=== PATIENT | male | born 1955 | race Caucasian/White ===

== ENCOUNTER 2018-07-15 07:28 | Outpatient (CLI) | payer OTHER, SELFPAY ==
[2018-07-15] VITALS (7 sets, daily range): BP systolic 111–128; BP diastolic 51–84; PULSE 76–83; RESP 16–18; O2SAT 94–98
--- NOTE | 2018-07-15 07:35 | DI.RAD.S_ITS ---
PROCEDURE: PAIN L/S TRANSFORAMINAL INJECT INDICATIONS: RADICULOPATHY FINDINGS: Fluoroscopic spot filming was performed to verify placement of spinal needles at the left side, L4-5 neural foramen area, son report sign report sign report as labeled on the films. Appropriate location(s) of the needle tip(s) was confirmed by injection of iodinated contrast. IMPRESSION: Needle tip localization on the left at the L4-5 neural foramen area for epidural steroid injection. Dictated by: Eron Shearer M.D. on 07/15/2018 at 10:03 Approved by: Eron Shearer M.D. on 07/15/2018 at 10:17
--- NOTE | 2018-07-15 07:35 | DI.RAD.S_ITS ---
PROCEDURE: XR LUMBAR SPINE MIN 4V INDICATIONS: RADICULOPATHY TECHNIQUE: 5 views of the lumbar spine were acquired. COMPARISON: [facility], , L-SPINE 2-3 VIEWS, 06/12/2007, 13:58. FINDINGS: Bones: 5 nonrib-bearing vertebrae are present. There is normal bony alignment. No vertebral body compression fractures. No suspicious bony lesions. Mild facet osteoarthritis is present at L34 and moderate facet osteoarthritis is present at L4-5 and slightly greater at L5-S1. This is present bilaterally. Mild foraminal stenosis appears present at L4-5 and L5-S1, symmetric. Soft tissues: Overlying bowel gas pattern is normal. No suspicious soft tissue calcifications. Oblique images: No pars defects. IMPRESSION: No trauma found, and no subluxation present. Degenerative disc disease is associated with only a slight degree of disc height reduction but facet osteoarthritis over the lower half of the LS-spine is associated with mild bilateral foraminal stenosis at L4-5 and L5-S1. Dictated by: Eron Shearer M.D. on 07/15/2018 at 9:44 Approved by: Eron Shearer M.D. on 07/15/2018 at 9:46
[2018-07-15] MEDS: MIDAZOLAM 5 MG/5 ML VIAL IV (08:23)
[2018-07-15] MEDS: BUPIVACAINE 0.25% (PF) VIAL 2 ML INJ (08:29)
[2018-07-15] MEDS: IOPAMIDOL 15 ML VIAL 3 ML INJ (08:30)
[2018-07-15] MEDS: DEXAMETHASONE 10 MG/ML VIAL 20 MG INJ (08:30)
--- NOTE | 2018-07-15 08:34 | PC.NURSE ---
Pt tolerated procedure, able to get off table with standby assist. Transferred pt to pre procedure room via wheelchair for continued monitoring with Lulu MARIE.
--- NOTE | 2018-07-15 08:38 | PM.PROC.1 ---
Procedures Date/Time Date of procedure: 07/15/18 Time of procedure: 08:39 General Procedure description: PREOP DIAGNOSIS 1. FORMAINAL STENOSIS WITH LE SYMPTOMS POST OP DIAGNOSIS 1. FORMAINAL STENOSIS WITH LE SYMPTOMS PROCEDURES 1. FLUOROSCOPICALLY GUIDED CONTRAST CONTROLLED TRANSFORAMINAL EPIDURAL STEROID INJECTION - LEFT L4/5 PHYSICIAN: Lexx Gould DO INDICATIONS: Amol is referred by DOROTHEA Wilson for treatment of Foraminal Stenosis with Left LE Symptoms FINDINGS Foraminal Nerve Root Compression secondary to disc disease and facet hypertrophy DESCRIPTION OF PROCEDURE: Following denial of allergy and review of potential side effects and complications, including, but not necessarily limited to, infection, allergic reaction, local tissue breakdown, stroke, temporary or permanent nerve injury, paralysis, and possible , the patient indicated that the patient understood and agreed to proceed. An informed consent document was signed by the patient, witnessed by a nurse, and placed in the patient's chart. Additionally, other treatment options including medications, modalities, and physical therapy were reviewed with the patient. After review of previous anaesthesic history and IV conscious sedation the patient was deemed safe to proceed with todays procedure with IV conscious sedation as ASA class II designation. Safety time-out was performed to confirm patient ID, procedure to be performed and site of procedure. IV sedation was accomplished with a combination of 3mg of Versed administered by the RN after DO order, titrated to patient comfort during the course of the procedure while the patient remained responsive to all verbal commands In the prone position following sterile prep and drape of the lumbar region, the left L4/5 posterior neuroforamen was identified fluoroscopically. The skin was anesthetized via a 25-gauge 1.5-inch needle with 1% lidocaine solution. At this point, a 25-gauge 3.5-inch spinal needle was atraumatically introduced and advanced under fluoroscopic guidance through the posterior left L4/5 neuroforamen to approximately the anterior aspect of the canal. Depth was confirmed on lateral view. Following negative aspiration, injection of approximately 1.5 cc of Isovue 200 under live fluoroscopy in the AP view confirmed excellent flow along the nerve root, into the epidural space without vascular or intrathecal uptake observed Radiological data, including multiple fluoroscopic views of the lumbosacral spine, reveal a spinal needle at the left L4/5 posterior neuroforamen. Subsequent views show flow of contrast material flowing superiorly and inferiorly along the nerve root confirming epidural flow. Subsequently, a test dose of 1.5 cc of 1% lidocaine solution was administered and patient was observed for two minutes for signs or symptoms of complications, including abdominal pain, shortness of breath, bilateral upper or lower extremity weakness, nausea and vomiting, prior to steroid injection. At this point, a total of 2cc or 20mg of dexamethasone was injected without incident. The procedure tolerated the procedure well without signs or symptoms of complications prior to transfer to the recovery area continued monitoring without incident. The patient was then transferred to the recovery area where they were observed for an appropriate time after the injection. The patient reported a VAS score of 7 prior to the procedure and a post-procedure VAS of 0. Total Fluoroscopy Time: 20.9 seconds Total Conscious Sedation Time: 24min POST OP INSTRUCTIONS The patient was provided a Pain Log to continue to record their response to the target-specific procedure prior to follow-up visit with their referring physician. Additionally, specific post-injection care instructions and a contact number to our office were provided if concerns arise regarding possible complications associated with the procedure are suspected. Lexx Gould DO Complications: none
--- NOTE | 2018-07-15 08:45 | PC.NURSE ---
ACCEPTED CARE OF PT IN POST PROC AREA. PT IN STABLE CONDITION
--- NOTE | 2018-07-16 12:26 | PC.NURSE ---
Follow up call made for post procedure Left L4/5 Transforaminal TALYA. Pt reports he's doing OK pain level went up to a 7/10. He has experienced the red flushing from the steroids, took valium last night and that helped. Also he said his leg stuff went away.
== END 2018-07-15 09:42 | disposition home or self-care (01) ==
LOC: RAD 07:31
PROVIDERS: Family Provider Physician Assistant Medical; PCP Physician Assistant Medical; Visit Provider Physical Medicine & Rehabilitation
DX: M47.27 Other spondylosis with radiculopathy, lumbosacral region (principal); M99.83 Other biomechanical lesions of lumbar region; M19.90 Unspecified osteoarthritis, unspecified site
CPT/HCPCS: 64483; 72110; 99152; J1100; J2250; J3010

== ENCOUNTER → 2018-08-07 20:02 | Outpatient (CLI) | payer OTHER, SELFPAY ==
--- NOTE | 2018-08-07 | DI.MRI.S_ITS ---
PROCEDURE: MR LUMBAR SPINE WO CON INDICATIONS: LEFT HIP PAIN TECHNIQUE: Noncontrast sagittal T1 spin echo and T2 fast echo, sagittal STIR, axial T1 and T2 fast spin echo through the lumbar spine. In cases with scoliosis, additional coronal T2 fast spin echo may be performed. COMPARISON: [facility], MR, L-SPINE WITHOUT CONTRAST, 05/08/2017, 15:02. [facility], MR, L-SPINE WITHOUT CONTRAST, 11/30/2010, 17:19. [facility], MR, L-SPINE WITHOUT CONTRAST, 08/01/2007, 11:53. [facility], CR, L-SPINE 2-3 VIEWS, 06/12/2007, 13:58. [facility], CR, XR LUMBAR SPINE MIN 4V, 07/15/2018, 7:58. FINDINGS: Image quality: Excellent. Alignment and Curvature: There is minimal retrolisthesis seen at the L2-L3 level. Minimal retrolisthesis is seen at L5-S1. Bone Marrow: Marrow is of normal overall signal. No acute vertebral body compression fractures. Spinal Cord: Conus medullaris terminates at the L1 level. Visualized cord demonstrates normal signal and size. Paraspinous Soft Tissues: No paravertebral masses. T12-L1: Normal appearance. L1-L2: No significant abnormality is seen. L2-L3: Mild loss of disc height is seen. Loss of disc signal is seen. Moderate generalized disc bulge is seen. Mild facet joint hypertrophy is seen. Moderate bilateral neural foraminal narrowing is seen. Moderate central canal narrowing is seen. These imaging findings have progressed compared to the prior study. L3-L4: Mild loss of disc height is seen. Loss of disc signal is seen. Moderate generalized disc bulge is seen. Ufnv-nr-jbmctoux facet hypertrophy is seen. Moderate bilateral neural foraminal narrowing is seen, right worse than left. Moderate central canal narrowing is seen. These imaging findings have progressed compared to the prior study. L4-L5: The disc height is well-preserved. Loss of disc signal is seen at this level. Moderate generalized disc bulge is seen. Moderate facet joint hypertrophy is seen. Moderate to severe bilateral neural foraminal narrowing is seen, left worse than right. There is a degree of compression seen upon the exiting nerve roots. There has been removal of portions of the posterior elements. The central canal is widely patent. These imaging findings have progressed compared to the prior study. L5-S1: The disc height is well-preserved. Loss of disc signal is seen at this level. Minimal to mild disc bulge is seen. Mild facet joint hypertrophy is seen. There is mild left-sided and no significant right-sided neural foraminal narrowing seen. The central canal is widely patent. When comparison is made with the prior examination, these findings are similar. IMPRESSION: Multiple levels of lumbar spine degenerative change are seen, which are overall most prominent at the L4-L5 level. Compared to the prior MRI, the degenerative changes have mildly progressed at L2-L3, L3-L4, and L4-L5. Dictated by: Julian Rockwell M.D. on 08/08/2018 at 9:02 Approved by: Julian Rockwell M.D. on 08/08/2018 at 9:08
--- NOTE | 2018-08-07 | DI.MRI.S_ITS ---
PROCEDURE: MR HIP LT WO CON INDICATIONS: LEFT HIP PAIN TECHNIQUE: Noncontrast coronal T1 spin echo and STIR through the bony pelvis. Coronal and axial T2 fast spin echo with fat saturation, sagittal T1 spin echo, and oblique axial T2 fast spin echo with fat saturation through the hip. COMPARISON: None. FINDINGS: Image quality: Excellent. Bones and joints: Mild degenerative subchondral cyst changes at the anterosuperior acetabulum. No intraosseous lesions or fractures. No avascular necrosis of the femoral heads. There is also mild periarticular marrow edema adjacent to the inferior aspect of the left sacroiliac joint. Lower lumbar spondylosis. Tendons and ligaments: The gluteus medius and minimus tendons appear mildly thickened with internal signal change and adjacent soft tissue edema in keeping with insertional tendinopathy. The nearby proximal iliotibial band also appears intact. The iliopsoas tendon appears intact, without adjacent bursal fluid collections or evidence for impingement syndrome. The origin of the hamstring tendon is intact at the ischial tuberosity, as well as the associated sacrotuberous ligament. The straight and reflected heads of the rectus femoris muscle origin appear intact, as well as the conjoint tendon. The ligamentum teres appears intact where visualized. Labrum and cartilage: The anterosuperior labrum is not well visualized raising possibility of degeneration versus ill-defined tear. This could be further assessed with dedicated MR arthrography if clinically necessary. Cartilage surface of the femoral head appears of normal thickness. The alpha angle of the femur is within normal limits at less than 55 degrees. Soft tissues: Visualized muscles demonstrate normal bulk and internal signal. Quadratus femoris muscle demonstrates no internal edema to suggest ischiofemoral impingement. The proximal sciatic neurovascular bundle appears normal adjacent to the hamstring tendons. No free pelvic fluid. Bladder wall thickness is normal. Genitourinary structures and bowel loops appear normal where visualized. IMPRESSION: Left hip abductor insertional tendinopathy (primarily affecting the gluteus minimus) with associated adjacent soft tissue edema. Poorly defined appearance of the anterosuperior labrum raising possibility of tear versus chronic degeneration. Adjacent subchondral marrow signal changes in the acetabulum suggests this is a chronic finding. Dictated by: Thierno Velarde M.D. on 08/08/2018 at 9:51 Approved by: Thierno Velarde M.D. on 08/08/2018 at 9:59
== END ==
PROVIDERS: Family Provider Physician Assistant Medical; PCP Physician Assistant Medical; Visit Provider Family Medicine
DX: M25.552 Pain in left hip (principal); M67.854 Other specified disorders of tendon, left hip; M47.816 Spondylosis without myelopathy or radiculopathy, lumbar region
CPT/HCPCS: 72148; 73721

== ENCOUNTER 2019-02-12 08:50 | Outpatient (CLI) | payer OTHER, SELFPAY ==
[2019-02-12] VITALS (8 sets, daily range): BP systolic 123–140; BP diastolic 59–88; PULSE 71–80; RESP 16–18; TEMP 36.5; O2SAT 93–99
--- NOTE | 2019-02-12 08:52 | DI.RAD.S_ITS ---
PROCEDURE: PAIN L/S TRANSFORAMINAL INJECT INDICATIONS: RADICULOPATHY FINDINGS: Fluoroscopic spot filming was performed to verify placement of spinal needles at the L4-L5 level(s), as labeled on the films. Appropriate location(s) of the needle tip(s) was confirmed by injection of iodinated contrast. IMPRESSION: Fluoroscopy for pain management. Dictated by: Pebbles Arreola M.D. on 02/12/2019 at 10:46 Approved by: Pebbles Arreola M.D. on 02/12/2019 at 10:46
[2019-02-12] MEDS: MIDAZOLAM 5 MG/5 ML VIAL IV (09:58)
[2019-02-12] MEDS: fentaNYL 100 MCG/2 ML INJ 50 MCG IV (09:59)
[2019-02-12] MEDS: DEXAMETHASONE 10 MG/ML VIAL 20 MG INJ (10:04)
[2019-02-12] MEDS: IOPAMIDOL 15 ML VIAL 3 ML INJ (10:04)
[2019-02-12] MEDS: BETAMETHASONE 30 MG/5 ML MDV 6 MG INJ (10:04)
[2019-02-12] MEDS: BUPIVACAINE 0.25% (PF) VIAL 2 ML INJ (10:04)
--- NOTE | 2019-02-12 10:09 | PC.NURSE ---
ASSISTING PT OFF TABLE AND TRANSPORTING TO POST PROC AREA IN STABLE CONDITION.
--- NOTE | 2019-02-12 10:14 | P.PCN_ITS ---
Procedures Date/Time Date of procedure: 02/12/19 Time of procedure: 10:14 General Procedure description: PREOP DIAGNOSIS 1. FORMAINAL STENOSIS WITH LE SYMPTOMS POST OP DIAGNOSIS 1. FORMAINAL STENOSIS WITH LE SYMPTOMS PROCEDURES 1. FLUOROSCOPICALLY GUIDED CONTRAST CONTROLLED TRANSFORAMINAL EPIDURAL STEROID INJECTION - RIGHT L4/5 TFESI PHYSICIAN: Lexx Gould DO INDICATIONS: Amol is referred by DOROTHEA Wilson for treatment of Foraminal Stenosis with Right LE Symptoms FINDINGS Foraminal Nerve Root Compression secondary to disc disease and facet hypertrophy DESCRIPTION OF PROCEDURE: Following review of allergy and review of potential side effects and complications, including, but not necessarily limited to, infection, allergic reaction, local tissue breakdown, stroke, temporary or permanent nerve injury, paralysis, and possible , the patient indicated that the patient understood and agreed to proceed. An informed consent document was signed by the patient, witnessed by a nurse, and placed in the patient's chart. Additionally, other treatment options including medications, modalities, and physical therapy were reviewed with the patient. After review of previous anaesthesic history and IV conscious sedation the patient was deemed safe to proceed with todays procedure with IV conscious sedation as ASA class II designation. Safety time-out was performed to confirm patient ID, procedure to be performed and site of procedure. IV sedation was accomplished with a combination of 3mg of Versed and 50mcg of Fentanyl was administered by the RN after DO order, titrated to patient comfort during the course of the procedure while the patient remained responsive to all verbal commands In the prone position following sterile prep and drape of the lumbar region, the Right L4/5 posterior neuroforamen was identified fluoroscopically. The skin was anesthetized via a 25-gauge 1.5-inch needle with 1% lidocaine solution. At this point, a 25-gauge 3.5-inch spinal needle was atraumatically introduced and advan regulo under fluoroscopic guidance through the posterior right L4/5 neuroforamen to approximately the anterior aspect of the canal. Depth was confirmed on lateral view. Following negative aspiration, injection of approximately 1.5 cc of Isovue 200 under live fluoroscopy in the AP view confirmed excellent flow along the nerve root, into the epidural space without vascular or intrathecal uptake observed Radiological data, including multiple fluoroscopic views of the lumbosacral spine, reveal a spinal needle at the right L4/5 posterior neuroforamen. Subsequent views show flow of contrast material flowing superiorly and inferiorly along the nerve root confirming epidural flow. Subsequently, a test dose of 1.5cc of 1% lidocaine solution was administered and patient was observed for two minutes for signs or symptoms of complications, including abdominal pain, shortness of breath, bilateral upper or lower extremity weakness, nausea and vomiting, prior to steroid injection. At this point, a total of 3cc or 20mg of dexamethasone and 6mg of betamethasone was injected without incident. The procedure tolerated the procedure well without signs or symptoms of complications prior to transfer to the recovery area continued monitoring without incident.The patient was then transferred to the recovery area where they were observed for an appropriate time after the injection. The patient reported a VAS score of 7 prior to the procedure and a post- procedure VAS of 0. Total Fluoroscopy Time: 20.9 seconds Total Conscious Sedation Time: 24min POST OP INSTRUCTIONS The patient was provided a Pain Log to continue to record their response to the target-specific procedure prior to follow-up visit with their referring physician. Additionally, specific post-injection care instructions and a contact number to our office were provided if concerns arise regarding possible complications associated with the procedure are suspected. Lexx Gould, Complications: none
== END 2019-02-12 10:40 | disposition home or self-care (01) ==
PROVIDERS: PCP Physician Assistant Medical; Visit Provider Physical Medicine & Rehabilitation
DX: M48.061 Spinal stenosis, lumbar region without neurogenic claudication (principal); M51.16 Intervertebral disc disorders with radiculopathy, lumbar region
CPT/HCPCS: 64483; 99152; J0702; J1100; J2250; J3010

== ENCOUNTER → 2019-05-19 09:03 | Outpatient (CLI) | payer OTHER, SELFPAY ==
--- NOTE | 2019-05-19 | DI.MRI.S_ITS ---
PROCEDURE: MR HIP RT W CON INDICATIONS: PAIN OF RIGHT HIP TECHNIQUE: After the administration of 10 mL of dilute intra-articular Gadolinium contrast, coronal STIR of the bony pelvis; coronal and oblique axial T1 spin echo with fat saturation, axial T2 fast spin echo with fat saturation, sagittal T1 spin echo with and without fat saturation of the involved hip. COMPARISON: [facility], [place], [place] HIP INJECTION MR/CT RT, 05/19/2019, 9:24. [facility], CR, XR PELVIS WITH LATERAL HIP LEFT, 09/08/2018, 9:13. FINDINGS: Image quality: Diagnostic. Bones and joints: There is no acute fracture, dislocation, suspicious osseous lesion, or evidence of avascular necrosis involving the right hip. Mild degenerative changes of the right hip are present with heterogeneity of the hyaline articular cartilage and probable small areas of cartilaginous fissuring. No large defects are evident. The alpha angle of the right femoral head measures approximately 57?. There is suboptimal distention of the right hip joint with the injected contrast. No loose intra-articular joint bodies are appreciated. The remainder of the imaged osseous structures of the pelvis demonstrate no fractures or suspicious osseous lesions. There mild degenerative changes of the other pelvic joints. Labrum: There is a moderate-sized superior labral tear with associated labral degeneration that extends along the entire superior labrum from the 10 o'clock position to at least the 2 o'clock position. No detached labral fragment or large para labral cysts are evident. Tendons and ligaments: The ligamentum teres is not well seen, but appears to be intact. There is mild increased signal identified involving the distal gluteus minimus tendon near its insertion. No significant tearing is present. The distal gluteus medius tendon is intact and otherwise unremarkable. The distal iliopsoas tendons are unremarkable. The proximal hamstrings tendons may demonstrate slight increased signal without significant tearing. Soft tissues: Visualized muscles demonstrate normal bulk and internal signal. Quadratus femoris muscle demonstrates no internal edema to suggest ischiofemoral impingement. The proximal sciatic neurovascular bundle appears normal adjacent to the hamstring tendons. No free pelvic fluid. Bladder wall demonstrates mild prominence. Genitourinary structures and bowel loops appear normal where visualized. IMPRESSION: 1. Mild degenerative changes of the right hip. 2. Moderate-sized superior labral tear. 3. Minimal distal right gluteus minimus tendinopathy without significant tearing. 4. Possible mild proximal right hamstrings tendinopathy. 5. Nonspecific prominence of the wall of the urinary bladder. This may be exaggerated by incomplete distention. However, cystitis or chronic bladder outlet obstruction may also result in this appearance. Dictated by: Wolf Talbert M.D. on 05/19/2019 at 10:30 Approved by: Wolf Talbert M.D. on 05/19/2019 at 10:51
--- NOTE | 2019-05-19 | DI.RAD.S_ITS ---
PROCEDURE: [place] HIP INJECTION MR/CT RT INDICATIONS: PAIN OF RIGHT HIP TECHNIQUE: The indications, alternatives, benefits, risks, and complications of the procedure were explained to the patient. Written informed consent was obtained and placed in the chart. The hip was examined fluoroscopically with the legs fixed in slight internal rotation, and a site for needle placement chosen for entry into the hip joint from an anterior approach. Care was taken to locate the common femoral artery and vein beforehand. The skin was prepped and draped in a sterile fashion, and 1% Lidocaine infiltrated from skin down to joint capsule. A spinal needle was inserted into the joint, and a small amount of iodinated contrast media injected to confirm intra-articular placement of the needle tip. This was followed by approximately 10 mL dilute solution of a gadolinium containing MR contrast agent. The needle was removed and a dressing was applied. The patient was given postprocedural instructions and sent to the MR suite for imaging. FINDINGS: A single fluoroscopic spot image demonstrates intra-articular location of injected iodinated contrast. IMPRESSION: Successful fluoroscopically guided administration of dilute Gadolinium solution into the hip joint for MR arthrogram. Dictated by: Eron Shearer M.D. on 05/19/2019 at 10:51 Approved by: Eron Shearer M.D. on 05/19/2019 at 10:51
== END ==
PROVIDERS: PCP Physician Assistant Medical; Visit Provider Physician Assistant Surgical
DX: M25.551 Pain in right hip (principal); S73.191A Other sprain of right hip, initial encounter
CPT/HCPCS: 27093; 73722; 77002

== ENCOUNTER → 2019-09-26 08:25 | Outpatient (CLI) | payer OTHER, SELFPAY ==
[2019-09-27 10:33] LABS: COVID19 Sendout Not Detected (Not Detect)
== END ==
PROVIDERS: PCP Physician Assistant Medical; Visit Provider Physician Assistant
DX: Z11.59 Encounter for screening for other viral diseases (principal)
CPT/HCPCS: 87635

== ENCOUNTER 2019-09-29 10:37 | Outpatient (CLI) | payer OTHER, SELFPAY ==
[2019-09-29] VITALS (10 sets, daily range): BP systolic 106–121; BP diastolic 46–79; PULSE 66–72; RESP 15–18; TEMP 36.6; O2SAT 86–98
--- NOTE | 2019-09-29 10:39 | DI.RAD.S_ITS ---
PROCEDURE: PAIN L/S TRANSFORAMINAL INJECT INDICATIONS: SPONDYLOSIS FINDINGS: Fluoroscopic spot filming was performed to verify placement of spinal needles at the L4-L5 level(s), as labeled on the films. Appropriate location(s) of the needle tip(s) was confirmed by injection of iodinated contrast. Dictated by: Thierno Velarde M.D. on 09/30/2019 at 8:48 Approved by: Thierno Velarde M.D. on 09/30/2019 at 8:48
[2019-09-29] MEDS: fentaNYL 100 MCG/2 ML INJ 50 MCG IV (11:30)
[2019-09-29] MEDS: MIDAZOLAM 5 MG/5 ML VIAL IV (11:31)
[2019-09-29] MEDS: BETAMETHASONE 30 MG/5 ML MDV 6 MG INJ (11:38)
[2019-09-29] MEDS: BUPIVACAINE 0.25% (PF) VIAL 2 ML INJ (11:38)
[2019-09-29] MEDS: IOPAMIDOL 15 ML VIAL 3 ML INJ (11:38)
[2019-09-29] MEDS: DEXAMETHASONE 10 MG/ML VIAL 20 MG INJ (11:38)
--- NOTE | 2019-09-29 11:48 | P.PCN_ITS ---
Procedures Date/Time Date of procedure: 09/29/19 Time of procedure: 11:48 General Procedure description: PREOP DIAGNOSIS 1. FORMAINAL STENOSIS WITH LE SYMPTOMS POST OP DIAGNOSIS 1. FORMAINAL STENOSIS WITH LE SYMPTOMS PROCEDURES 1. FLUOROSCOPICALLY GUIDED CONTRAST CONTROLLED TRANSFORAMINAL EPIDURAL STEROID INJECTION - LEFT L4/5 PHYSICIAN: Lexx Gould DO INDICATIONS: Amol is referred by DOROTHEA Wilson for treatment of Foraminal Stenosis with Left LE Symptoms FINDINGS Foraminal Nerve Root Compression secondary to disc disease and facet hypertrophy DESCRIPTION OF PROCEDURE: Following review of allergy and review of potential side effects and complications, including, but not necessarily limited to, infection, allergic reaction, local tissue breakdown, stroke, temporary or permanent nerve injury, paralysis, and possible , the patient indicated that the patient understood and agreed to proceed. An informed consent document was signed by the patient, witnessed by a nurse, and placed in the patient's chart. Additionally, other treatment options including medications, modalities, and physical therapy were reviewed with the patient. After review of previous anaesthesic history and IV conscious sedation the toney ent was deemed safe to proceed with todays procedure with IV conscious sedation as ASA class II designation. Safety time-out was performed to confirm patient ID, procedure to be performed and site of procedure. IV sedation was accomplished with a combination of 3mg of Versed and 50mcg of Fentanyl administered by the RN after DO order, titrated to patient comfort during the course of the procedure while the patient remained responsive to all verbal commands In the prone position following sterile prep and drape of the lumbar region, the left L4/5 posterior neuroforamen was identified fluoroscopically. The skin was anesthetized via a 25-gauge 1.5-inch needle with 1% lidocaine solution. At this point, a 22-gauge 5-inch spinal needle was atraumatically introduced and advanced under fluoroscopic guidance through the posterior left L4/5 neuroforamen to approximately the anterior aspect of the canal. Depth was confirmed on lateral view. Following negative aspiration, injection of appro ximately 1.5 cc of Isovue 200 under live fluoroscopy in the AP view confirmed excellent flow along the nerve root, into the epidural space without vascular or intrathecal uptake observed Radiological data, including multiple fluoroscopic views of the lumbosacral spine, reveal a spinal needle at the left L4/5 posterior neuroforamen. Subsequent views show flow of contrast material flowing superiorly and inferiorly along the nerve root confirming epidural flow. Subsequently, a test dose of 1.5 cc of 1% lidocaine solution was administered and patient was observed for two minutes for signs or symptoms of complications, including abdominal pain, shortness of breath, bilateral upper or lower extremity weakness, nausea and vomiting, prior to steroid injection. At this point, a total of 3cc or 20mg of dexamethasone and 6mg of betamethasone was injected without incident. The procedure tolerated the procedure well without signs or symptoms of complications prior to transfer to the recovery area continued monitoring without incident. The patient was then transferred to the recovery area where they were observed for an appropriate time after the injection. The patient reported a VAS score of 7 prior to the procedure and a post- procedure VAS of 0. Total Fluoroscopy Time: 12 seconds Total Conscious Sedation Time: 24min POST OP INSTRUCTIONS The patient was provided a Pain Log to continue to record their response to the target-specific procedure prior to follow-up visit with their referring physician. Additionally, specific post-injection care instructions and a contact number to our office were provided if concerns arise regarding possible complications associated with the procedure are suspected. Lexx Gould DO Complications: none
== END 2019-09-29 12:14 | disposition home or self-care (01) ==
LOC: RAD 10:38
PROVIDERS: PCP Physician Assistant Medical; Referring Provider Physical Medicine & Rehabilitation; Visit Provider Physical Medicine & Rehabilitation
DX: M48.061 Spinal stenosis, lumbar region without neurogenic claudication (principal); M51.16 Intervertebral disc disorders with radiculopathy, lumbar region
CPT/HCPCS: 64483; 99152; J0702; J1100; J2250; J3010

== ENCOUNTER → 2019-12-12 08:13 | Outpatient (CLI) | payer OTHER, SELFPAY ==
[2019-12-14 13:08] LABS: COVID19 Sendout Not Detected (Not Detect)
== END ==
PROVIDERS: PCP Physician Assistant Medical; Visit Provider Nurse Practitioner
DX: Z11.59 Encounter for screening for other viral diseases (principal)
CPT/HCPCS: 87635

== ENCOUNTER 2019-12-15 08:00 | Outpatient (CLI) | payer OTHER, SELFPAY ==
[2019-12-15] VITALS (8 sets, daily range): BP systolic 120–143; BP diastolic 56–74; PULSE 69–80; RESP 8–18; TEMP 36.3; O2SAT 93–98
--- NOTE | 2019-12-15 08:00 | DI.RAD.S_ITS ---
PROCEDURE: PAIN L/S TRANSFORAMINAL INJECT INDICATIONS: SPONDYLOSIS COMPARISON: [facility], , PAIN L/S TRANSFORAMINAL INJECT, 09/29/2019, 10:33. Fluoroscopic spot filming was performed to verify placement of a spinal needle at the L4-L5 level on the right, as labeled on the films. Appropriate location of the needle tip was confirmed by injection of iodinated contrast. IMPRESSION: Intraprocedural examination within normal limits. Dictated by: Julian Rockwell M.D. on 12/15/2019 at 9:06 Approved by: Julian Rockwell M.D. on 12/15/2019 at 9:07
[2019-12-15] MEDS: MIDAZOLAM 5 MG/5 ML VIAL IV (09:09)
[2019-12-15] MEDS: fentaNYL 100 MCG/2 ML INJ 50 MCG IV (09:09)
[2019-12-15] MEDS: BETAMETHASONE 30 MG/5 ML MDV 6 MG INJ (09:14)
[2019-12-15] MEDS: DEXAMETHASONE 10 MG/ML VIAL 20 MG INJ (09:14)
[2019-12-15] MEDS: BUPIVACAINE 0.25% (PF) VIAL 2 ML INJ (09:14)
[2019-12-15] MEDS: IOPAMIDOL 15 ML VIAL 3 ML INJ (09:14)
--- NOTE | 2019-12-15 09:28 | P.PCN_ITS ---
Date/Time/Diagnoses Date of procedure: 12/15/19 Time of procedure: 09:28 Pre-procedure diagnosis: 1. FORAMINAL STENOSIS WITH LE SYMPTOMS Post-procedure diagnosis: same Procedure Notes Procedure: 1. FLUOROSCOPICALLY GUIDED CONTRAST CONTROLLED TRANSFORAMINAL EPIDURAL STEROID INJECTION - RIGHT L4/5 TFESI Indications: Amol is referred by DOROTHEA Wilson for treatment of Foraminal Stenosis with Right LE Symptoms Physician: Lexx Gould Total Fluoroscopy time (seconds): 13 Total sedation minutes: 13 Complications: none Procedure in detail & Post-procedure care: FINDINGS Foraminal Nerve Root Compression secondary to disc disease and facet hypertrophy DESCRIPTION OF PROCEDURE Following review of allergy and review of potential side effects and complications, including, but not necessarily limited to, infection, allergic reaction, local tissue breakdown, stroke, temporary or permanent nerve injury, paralysis, and possible , the patient indicated that the patient understood and agreed to proceed. An informed consent document was signed by the patient, witnessed by a nurse, and placed in the patient's chart. Additionally, other treatment options including medications, modalities, and physical therapy were reviewed with the patient. After review of previous anaesthesic history and IV conscious sedation the patient was deemed safe to proceed with today?s procedure with IV conscious sedation as ASA class II designation. Safety time-out was performed to confirm patient ID, procedure to be performed and site of procedure. IV sedation was accomplished with a combination of 2mg of Versed and 50mcg of Fentanyl was administered by the RN after DO order, titrated to patient comfort during the course of the procedure while the patient remained responsive to all verbal commands In the prone position following sterile prep and drape of the lumbar region, the Right L4/5 posterior neuroforamen was identified fluoroscopically. The skin was anesthetized via a 25-gauge 1.5-inch needle with 1% lidocaine solution. At this point, a 22-gauge 5-inch spinal needle was atraumatically introduced and advanced under fluoroscopic guidance through the posterior Right L4/5 neuroforamen to approximately the anterior aspect of the canal. Depth was confirmed on lateral view. Following negative aspiration, injection of approximately 1.5cc of Isovue 200 under live fluoroscopy in the AP view confirmed excellent flow along the nerve root, into the epidural space without vascular or intrathecal uptake observed Radiological data, including multiple fluoroscopic views of the lumbosacral spine, reveal a spinal needle at the right L4/5 posterior neuroforamen. Subsequent views show flow of contrast material flowing superiorly and inferiorly along the nerve root confirming epidural flow. Subsequently, a test dose of 1.5 cc of 1% lidocaine solution was administered and patient was observed for two minutes for signs or symptoms of complications, including abdominal pain, shortness of breath, bilateral upper or lower extremity weakness, nausea and vomiting, prior to steroid injection. At this point, a total of 3cc or 20mg of dexamethasone and 6mg of betamethasone was injected without incident. The procedure tolerated the procedure well without signs or symptoms of complications prior to transfer to the recovery area continued monitoring without incident. The patient was then transferred to the recovery area where they were observed for an appropriate time after the injection. The patient reported a VAS score of 7 prior to the procedure and a post- procedure VAS of 0. POST OP INSTRUCTIONS The patient was provided a Pain Log to continue to record their response to the target-specific procedure prior to follow-up visit with their referring physician. Additionally, specific post-injection care instructions and a contact number to our office were provided if concerns arise regarding possible complications associated with the procedure are suspected.
== END 2019-12-15 09:51 | disposition home or self-care (01) ==
LOC: RAD 08:00
PROVIDERS: PCP Physician Assistant Medical; Referring Provider Physician Assistant Medical; Visit Provider Physical Medicine & Rehabilitation
DX: M48.061 Spinal stenosis, lumbar region without neurogenic claudication (principal); M51.16 Intervertebral disc disorders with radiculopathy, lumbar region
CPT/HCPCS: 64483; 99152; J0702; J1100; J2250; J3010

== ENCOUNTER → 2020-06-22 08:18 | Outpatient (CLI) | payer OTHER, SELFPAY ==
--- NOTE | 2020-06-22 08:20 | DI.RAD.S_ITS ---
PROCEDURE: XR LUMBAR SPINE MIN 4V INDICATIONS: BACK PAIN TECHNIQUE: 5 views of the lumbar spine were acquired, including bilateral oblique views. COMPARISON: [facility], CR, XR LUMBAR SPINE MIN 4V, 07/15/2018, 7:58. FINDINGS: Bones: 5 nonrib-bearing vertebrae are present. There is mild L4-L5 anterolisthesis which is not significantly changed compared to the prior exam. No vertebral body compression fractures. No suspicious bony lesions. Mild multilevel degenerative disc disease. Moderate L4-L5 and L5-S1 facet arthropathy. Soft tissues: Overlying bowel gas pattern is normal. No suspicious soft tissue calcifications. Oblique images: No pars defects. IMPRESSION: 1. Multilevel degenerative disc disease. 2. Multilevel facet arthropathy. 3. No fracture. No acute osseous lesion. If symptoms and/or clinical suspicion for pathology persists, evaluation with MRI should be considered for further assessment. Dictated by: Analy Lu MD, PhD on 06/22/2020 at 17:21 Approved by: Analy Lu MD, PhD on 06/22/2020 at 17:22
== END ==
PROVIDERS: PCP Physician Assistant Medical; Referring Provider Physical Medicine & Rehabilitation; Visit Provider Physical Medicine & Rehabilitation
DX: M51.36 Other intervertebral disc degeneration, lumbar region (principal); M48.061 Spinal stenosis, lumbar region without neurogenic claudication; M51.26 Other intervertebral disc displacement, lumbar region; M54.17 Radiculopathy, lumbosacral region; M96.1 Postlaminectomy syndrome, not elsewhere classified; M25.851 Other specified joint disorders, right hip; M47.27 Other spondylosis with radiculopathy, lumbosacral region; M67.952 Unspecified disorder of synovium and tendon, left thigh
CPT/HCPCS: 72110; 99214

== ENCOUNTER → 2020-07-19 13:28 | Outpatient (CLI) | payer OTHER, SELFPAY ==
[2020-07-19 15:50] LABS: COVID19 -Nasal RAPID Negative (Negative)
== END ==
PROVIDERS: PCP Physician Assistant Medical; Visit Provider Physical Medicine & Rehabilitation
DX: Z20.822 Contact with and (suspected) exposure to COVID-19 (principal)
CPT/HCPCS: 87635; C9803

== ENCOUNTER 2020-07-21 12:31 | Outpatient (CLI) | payer OTHER, SELFPAY ==
[2020-07-21] VITALS (10 sets, daily range): BP systolic 113–142; BP diastolic 56–77; PULSE 58–67; RESP 10–25; TEMP 36.6; O2SAT 96–100
[2020-07-21] MEDS: fentaNYL 100 MCG/2 ML INJ 50 MCG IV (13:20)
[2020-07-21] MEDS: MIDAZOLAM 5 MG/5 ML VIAL IV (13:26)
[2020-07-21] MEDS: BUPIVACAINE 0.25% (PF) VIAL 2 ML INJ (13:28)
[2020-07-21] MEDS: IOPAMIDOL 15 ML VIAL 3 ML INJ (13:28)
[2020-07-21] MEDS: LIDOCAINE 1% 20 ML 10 ML INJ (13:28)
[2020-07-21] MEDS: BETAMETHASONE 30 MG/5 ML MDV 12 MG INJ (13:28)
[2020-07-21] MEDS: DEXAMETHASONE 10 MG/ML VIAL 20 MG INJ (13:28)
--- NOTE | 2020-07-21 13:45 | PM.PROC.IR.1 ---
Date/Time/Diagnoses Date of procedure: 07/21/20 Time of procedure: 13:45 Pre-procedure diagnosis: 1. FORAMINAL STENOSIS WITH LE SYMPTOMS Procedure Notes Procedure: 1. FLUOROSCOPICALLY GUIDED CONTRAST CONTROLLED TRANSFORAMINAL EPIDURAL STEROID INJECTION - BILATERAL L4/5 TFESI Indications: Amol is referred by DOROTHEA Wilson for treatment of Foraminal Stenosis with bilateral LE Symptoms Physician: Lexx Gould Total Fluoroscopy time (seconds): 13 Total sedation minutes: 19 Complications: none Procedure in detail & Post-procedure care: FINDINGS Foraminal Nerve Root Compression secondary to disc disease and facet hypertrophy DESCRIPTION OF PROCEDURE Following review of allergy and review of potential side effects and complications, including, but not necessarily limited to, infection, allergic reaction, local tissue breakdown, stroke, temporary or permanent nerve injury, paralysis, and possible , the patient indicated that the patient understood and agreed to proceed. An informed consent document was signed by the patient, witnessed by a nurse, and placed in the patient's chart. Additionally, other treatment options including medications, modalities, and physical therapy were reviewed with the patient. After review of previous anaesthesic history and IV conscious sedation the patient was deemed safe to proceed with today?s procedure with IV conscious sedation as ASA class II designation. Safety time-out was performed to confirm patient ID, procedure to be performed and site of procedure. IV sedation was accomplished with a combination of 3mg of Versed and 50mcg of Fentanyl was administered by the RN after DO order, titrated to patient comfort during the course of the procedure while the patient remained responsive to all verbal commands In the prone position following sterile prep and drape of the lumbar region, the right L4/5 posterior neuroforamen was identified fluoroscopically. The skin was anesthetized via a 25-gauge 1.5-inch needle with 1% lidocaine solution. At this point, a 25-gauge 3.5-inch spinal needle was atraumatically introduced and advanced under fluoroscopic guidance through the posterior right L4/5 neuroforamen to approximately the anterior aspect of the canal. Depth was confirmed on lateral view. Following negative aspiration, injection of approximately 1.5cc of Isovue 200 under live fluoroscopy in the AP view confirmed excellent flow along the nerve root, into the epidural space without vascular or intrathecal uptake observed Radiological data, including multiple fluoroscopic views of the lumbosacral spine, reveal a spinal needle at the right L4/5 posterior neuroforamen. Subsequent views show flow of contrast material flowing superiorly and inferiorly along the nerve root confirming epidural flow. Subsequently, a test dose of 1.5cc of 1% lidocaine solution was administered and patient was observed for two minutes for signs or symptoms of complications, including abdominal pain, shortness of breath, bilateral upper or lower extremity weakness, nausea and vomiting, prior to steroid injection. At this point, a total of 3cc or 20mg of dexamethasone and 6mg betamethasone was injected without incident. Attention was then refocused to the left L4/5 level where the identical procedure was replicated. The procedure tolerated the procedure well without signs or symptoms of complications prior to transfer to the recovery area continued monitoring without incident. The patient was then transferred to the recovery area where they were observed for an appropriate time after the injection. The patient reported a VAS score of 7 prior to the procedure and a post-procedure VAS of 0. POST OP INSTRUCTIONS The patient was provided a Pain Log to continue to record their response to the target-specific procedure prior to follow-up visit with their referring physician. Additionally, specific post-injection care instructions and a contact number to our office were provided if concerns arise regarding possible complications associated with the procedure are suspected.
--- NOTE | 2020-07-21 13:48 | DI.RAD.S_ITS ---
PROCEDURE: PAIN L/S TRANSFORAM INJECT ANTONIO COMPARISON: [facility], , PAIN L/S TRANSFORAMINAL INJECT, 12/15/2019, 9:13. INDICATIONS: SPONDYLOSIS FINDINGS: Fluoroscopic spot filming was performed to verify placement of spinal needles on both sides at the L4-L5 level, as labeled on the films. Appropriate location of the needle tips was confirmed by injection of iodinated contrast. IMPRESSION: Intraprocedural examination within normal limits. Dictated by: Julian Rockwell M.D. on 07/21/2020 at 14:39 Approved by: Julian Rockwell M.D. on 07/21/2020 at 14:39
== END 2020-07-21 13:56 | disposition home or self-care (01) ==
LOC: RAD 12:32
PROVIDERS: PCP Physician Assistant Medical; Referring Provider Physician Assistant Medical; Visit Provider Physical Medicine & Rehabilitation
DX: M48.061 Spinal stenosis, lumbar region without neurogenic claudication (principal); M51.16 Intervertebral disc disorders with radiculopathy, lumbar region
CPT/HCPCS: 64483; 99152; J0702; J1100; J2250; J3010

== ENCOUNTER → 2020-11-22 08:11 | Outpatient (CLI) | payer MEDICARE, OTHER, SELFPAY ==
[2020-11-22 11:58] LABS: COVID19 -Nasal RAPID Negative (Negative)
== END ==
PROVIDERS: PCP Physician Assistant Medical; Visit Provider Physical Medicine & Rehabilitation
DX: Z20.822 Contact with and (suspected) exposure to COVID-19 (principal)
CPT/HCPCS: 87635; C9803

== ENCOUNTER 2020-11-24 08:16 | Outpatient (CLI) | payer MEDICARE, OTHER, SELFPAY ==
[2020-11-24] VITALS (8 sets, daily range): BP systolic 101–143; BP diastolic 55–82; PULSE 12–74; RESP 13–20; TEMP 36.5; O2SAT 95–100
--- NOTE | 2020-11-24 08:22 | DI.RAD.S_ITS ---
PROCEDURE: PAIN L/S FACET INJ/BLK 1ST ANTONIO COMPARISON: None. INDICATIONS: SPONDYLOSIS FINDINGS: Fluoroscopic spot filming was performed to verify placement of spinal needles at the L1-L2, L2-L3, L3-L4 level(s), as labeled on the films. Appropriate location(s) of the needle tip(s) was confirmed by injection of iodinated contrast. Dictated by: Thierno Velarde M.D. on 11/24/2020 at 10:32 Approved by: Thierno Velarde M.D. on 11/24/2020 at 10:33
[2020-11-24] MEDS: MIDAZOLAM 5 MG/5 ML VIAL IV (09:10)
[2020-11-24] MEDS: fentaNYL 100 MCG/2 ML INJ 50 MCG IV (09:10)
[2020-11-24] MEDS: LIDOCAINE 1% 20 ML INJ (09:13)
[2020-11-24] MEDS: BUPIVACAINE 0.5% (PF) VIAL 5 ML INJ (09:13)
[2020-11-24] MEDS: IOPAMIDOL 15 ML VIAL 3 ML INJ (09:14)
--- NOTE | 2020-11-24 09:33 | P.PCN_ITS ---
Date/Time/Diagnoses Date of procedure: 11/24/20 Time of procedure: 09:33 Pre-procedure diagnosis: 1. FACET ARTHROPATHY 2. AXIAL LBP 3. MULTILEVEL DDD Post-procedure diagnosis: same Procedure Notes Procedure: 1. FLUOROSCOPICALLY GUIDED CONTRAST CONTROLLED FACET JOINT INJECTIONS BILATERAL L1/2, L2/3, L3/4 Indications: Amol is referred by DOROTHEA Wilson for treatment of Axial LBP Physician: Lexx Gould Total Fluoroscopy time (seconds): 14 Total sedation minutes: 17 Complications: none Procedure in detail & Post-procedure care: FINDINGS Multilevel Facet Arthropathy with Clinically significant axial LBP DESCRIPTION OF PROCEDURE Fluoroscopically guided, contrast-controlled bilateral L1/2, L2/3, L3/4 facet joint injections. Following review of allergy and review of potential side effects and complications, including, but not necessarily limited to, infection, allergic reaction, local tissue breakdown, stroke, temporary or permanent nerve injury, paralysis, and possible , the patient indicated that the patient understood and agreed to proceed. An informed consent document was signed by the patient, witnessed by a nurse, and placed in the patient's chart. Additionally, other treatment options including medications, modalities, and physical therapy were reviewed with the patient. After review of previous anaesthesic history and IV conscious sedation the p atient was deemed safe to proceed with today's procedure with IV conscious sedation as ASA class II designation. Safety time-out was performed to confirm patient ID, procedure to be performed and site of procedure. IV sedation was accomplished with a combination of 3mg of Versed and 50mcg of Fentanyl administered by the RN after DO order, titrated to patient comfort during the course of the procedure while the patient remained responsive to all verbal commands In the prone position, following sterile prep and drape of the lumbar region, the posterior aspect of the L1/2, L2/3, L3/4 facet joints were identified fluoroscopically. The skin was anesthetized via a 25-gauge 1.5-inch needle with 1% lidocaine solution into the corresponding facet joints. At this point, a 22- gauge 3.5-inch spinal needle was atraumatically introduced and advanced under fluoroscopic guidance into the corresponding facet joints. Following negative aspiration, injections of approximately 0.2cc of Isovue 200 confirmed interarticular placement without vascular uptake. The identical procedure was then performed at the L1/2, L2/3, L3/4 facet joints on the left. Radiological data, including multiple fluoroscopic views of the lumbosacral spine, reveal a spinal needle at the L1/2, L2/3, L3/4 facet joints bilaterally. Subsequent views show flow of contrast material both superiorly and inferiorly within the joint space without vascular or intrathecal uptake. At this point, a total of 0.5cc including a mixture of 0.25cc Marcaine and 0.25cc betamethasone was injected without complication into each of the corresponding facet joints. The patient tolerated the procedure well without signs or symptoms of complications prior to transfer to the recovery area continued monitoring without incident. The patient was then transferred to the recovery area where they were observed for an appropriate period of time after the injection. The patient reported a VAS score of 7 prior to the procedure and a post-procedure VAS of 0. POST OP INSTRUCTIONS The patient was provided a Pain Log to continue to record their response to the target-specific procedure prior to follow-up visit with their referring physician. Additionally, specific post-injection care instructions and a contact number to our office were provided if concerns arise regarding possible complications associated with the procedure are suspected.
== END 2020-11-24 09:45 | disposition home or self-care (01) ==
LOC: RAD 08:21
PROVIDERS: PCP Physician Assistant Medical; Referring Provider Physical Medicine & Rehabilitation; Visit Provider Physical Medicine & Rehabilitation
DX: M47.816 Spondylosis without myelopathy or radiculopathy, lumbar region (principal); M51.36 Other intervertebral disc degeneration, lumbar region; M54.5 Low back pain
CPT/HCPCS: 64493; 64494; 64495; 99152; J2250; J3010

== ENCOUNTER 2021-03-11 17:38 | Emergency (ER) | payer MEDICARE, OTHER, SELFPAY ==
[2021-03-11 17:40] VITALS: BP 131/65; PULSE 73; RESP 30; TEMP 36.8; O2SAT 100; BMI 34.7
--- NOTE | 2021-03-11 17:51 | DI.RAD.S_ITS ---
PROCEDURE: XR CHEST 1V INDICATIONS: chest pain TECHNIQUE: One view of the chest was acquired. COMPARISON: None. FINDINGS: Surgical changes and devices: None. Lungs and pleura: Lungs are clear. No pleural effusions or pneumothorax. Mediastinum: Mediastinal contours appear normal. Heart size is normal. Bones and chest wall: No suspicious bony lesions. Overlying soft tissues appear unremarkable. IMPRESSION: No acute cardiopulmonary abnormalities or focal airspace disease. Dictated by: Solomon Scanlon M.D. on 03/11/2021 at 18:12 Approved by: Solomon Scanlon M.D. on 03/11/2021 at 18:12
[2021-03-11 18:20] LABS: Add Manual Diff / Slide Review NO; Basophils Absolute Auto 0 /uL (0-100); Basophils Percent Auto 0.2 % (0-2); Eosinophils Absolute Auto 800 /uL (0-450); Eosinophils Percent Auto 9.7 % (2-4); Hematocrit 45.3 % (41-53); Hemoglobin 15.7 g/dL (13.5-17.5); Lymphocytes Absolute Auto 2900 /uL (1100-4500); Lymphocytes Percent Auto 36.6 % (25-40); Mean Corpuscular HGB Conc 34.6 % (30-36); Mean Corpuscular Hemoglobin 30.4 PG (26-34); Mean Corpuscular Volume 87.9 fL (80-100); Monocytes Absolute Auto 600 /uL (0-900); Monocytes Percent Auto 7.1 % (3-14); Neutrophils Absolute Auto 3700 /uL (1500-7000); Neutrophils Percent Auto 46.4 % (50-75); Platelet Count 219 X10^3/uL (150-400); Red Blood Cell Count 5.16 X10^6/uL (4.5-5.9); Red Cell Distribution Width 12.6 % (11.6-14.8)
--- NOTE | 2021-03-11 18:25 | ED_ITS ---
HPI - General Adult General Chief complaint: Shortness of Breath/Dyspnea Stated complaint: faint,legs,arm,neck hurt, shooting pain/chest Time Seen by Provider: 03/11/21 18:23 Source: patient and family Mode of arrival: Wheelchair History of Present Illness HPI narrative: 65-year-old gentleman with a history of V-tach in number of years ago with full cardiac workup that was reassuring, he continues with metoprolol. He has chronic low back pain that is doing better after recent epidural steroid injection. He does take oxycodone 5 mg twice a day to help with this pain. Additionally has depression and noticed his over the last 6 weeks he has had worsening insomnia that has not been well treated with either Ambien or trazodone. He reports to the emergency room today complaining of abruptly feeling short of breath with central chest pain radiating up both sides of his neck both arms bilateral leg pain below his knees, a sense of chest tightness mild wheeze and notes that does feel worse with deep breathing but not particularly worse with exertion. He also notes ear pain throat pain and pain along the base of his skull along entire occiput. States that he has chronic exertional dyspnea that has had a negative workup to date. He describes no palpitations no nausea vomiting or diarrhea. He notes that he has not been COV ID vaccinated, but did have active infection in October of 2019 and continues to have loss of taste and smell with fullness and tinnitus in his ears. Related Data Home Medications Medication Instructions Recorded Confirmed cyclobenzaprine 10 mg tablet 10 mg PO PRN #0 05/27/12 02/06/21 desvenlafaxine succinate 100 mg 100 mg PO QDAY #0 06/26/12 02/06/21 tablet,extended release 24 hr (Pristiq) diclofenac sodium 75 mg 75 mg PO BID 06/23/18 02/06/21 tablet,delayed release omeprazole 20 mg capsule,delayed 20 mg PO BID cap 06/23/18 02/06/21 release metoprolol succinate 25 mg 25 mg PO DAILY 08/17/19 02/06/21 tablet,extended release 24 hr ergocalciferol (vitamin D2) 1,250 50,000 unit PO 2XW cap 06/22/20 02/06/21 mcg (50,000 unit) capsule fluticasone propionate 110 INHALATION 06/22/20 02/06/21 mcg/actuation HFA aerosol inhaler oxycodone 5 mg tablet 5 mg PO DAILY PRN tab 02/06/21 02/06/21 Allergies Allergy/AdvReac Type Severity Reaction Status Date / Time hydroxyzine Allergy Mild Verified 03/11/21 18:04 piroxicam Allergy Mild Blister Verified 03/11/21 18:04 topiramate Allergy Mild Blurry Verified 03/11/21 18:04 Vision Review of Systems Review of Systems Narrative: Remainder of complete review of systems is otherwise unremarkable except for that included in the HPI. 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 Well-nourished well-developed HEENT: Moist mucous membranes, normal sclera with reactive pupils, Neck: No JVD, supple Respiratory: Lungs are clear to auscultation, no wheezing no rales no rhonchi. Full and symmetrical air movement Cardiac: Regular rate and rhythm no murmurs no bruits Abdomen: Soft, nontender, good bowel tones, no flank pain Skin: Warm and dry, no rashes Neurologic: Grossly neurologically intact with no obvious asymmetries or abnormalities Extremities: No trauma, well perfused, no lower extremity edema Psych: Cooperative, appropriate insight and affect Initial Vital Signs Initial Vital Signs: Vital Signs Temperature 98.2 F 03/11/21 17:40 Pulse Rate 73 03/11/21 17:40 Respiratory Rate 30 H 03/11/21 17:40 Blood Pressure 131/65 03/11/21 17:40 Pulse Oximetry 100 03/11/21 17:40 Course Orders Ordered: ED Orders 03/11/21 17:51 XR chest 1V Stat EKG-12 Lead Stat 03/11/21 18:05 Complete Blood Count AUTO DIFF Stat Comprehensive Metabolic Panel Stat Lipase Stat Magnesium Stat Troponin & CK Cardiac Panel Stat 03/11/21 18:22 COVID19 -Nasal swab/Pre-Proc Stat Vital Signs Vital signs: Vital Signs - 8 hr 03/11/21 17:40 Temperature 98.2 F Pulse Rate 73 Respiratory Rate 30 H Blood Pressure 131/65 Pulse Oximetry 100 Medical Decision Making Lab Data Result diagrams: 03/11/21 18:05 03/11/21 18:05 Labs: Lab Results 03/11/21 03/11/21 03/11/21 Range/Units 17:48 18:05 18:05 WBC 8.0 (4.5-11.0) X10^3/uL RBC 5.16 (4.5-5.9) X10^6/uL Hgb 15.7 (13.5-17.5) g/dL Hct 45.3 (41-53) % MCV 87.9 (80-100) fL MCH 30.4 (26-34) PG MCHC 34.6 (30-36) % RDW 12.6 (11.6-14.8) % Plt Count 219 (150-400) X10^3/uL Neut % (Auto) 46.4 L (50-75) % Lymph % (Auto) 36.6 (25-40) % [place] % (Auto) 7.1 (3-14) % Eos % (Auto) 9.7 H (2-4) % Baso % (Auto) 0.2 (0-2) % Neut # (Auto) 3700 (2698-8446) /uL Lymph # (Auto) 2900 (0666-9563) /uL [place] # (Auto) 600 (0-900) /uL Eos # (Auto) 800 H (0-450) /uL Baso # (Auto) 0 (0-100) /uL Sodium 136 L (137-145) mmol/L Potassium 4.1 (3.4-5.1) mmol/L Chloride 104 (98-107) mmol/L Carbon Dioxide 22 (22-32) mmol/L BUN 13 (9-20) mg/dL Creatinine 0.96 (0.66-1.25) mg/dL Estimated GFR > 60.0 (>60) mL/min BUN/Creatinine Ratio 13.5 (6-22) Glucose 86 (80-110) mg/dL Calcium 10.1 (8.4-10.2) mg/dL Magnesium 2.2 (1.6-2.3) mg/dL Total Bilirubin 0.6 (0.2-1.3) mg/dL AST 38 (17-59) IU/L ALT 29 (<50) IU/L Alkaline Phosphatase 69 (38-126) U/L Total Creatine Kinase 442 H (55-170) U/L CK-MB (CK-2) 5.20 H (<2.37) ng/mL CK-MB (CK-2) Rel Index 1.2 L (1.5-5.0) % Troponin I 0.014 (0.01-0.034) ng/mL Total Protein 7.7 (6.3-8.2) g/dL Albumin 4.8 (3.5-5.0) g/dL Globulin 2.9 (1.7-4.1) g/dL Albumin/Globulin Ratio 1.7 (1.0-2.8) Lipase 58 (23-300) U/L SARS-CoV-2 (PCR) Negative (Negative) Imaging Data Chest x-ray: Radiologist's Impression: FINDINGS:? ? Surgical changes and devices:? None.? ? Lungs and pleura:? Lungs are clear.? No pleural effusions or pneumothorax.? ? Mediastinum:? Mediastinal contours appear normal.? Heart size is normal.? ? Bones and chest wall:? No suspicious bony lesions.? Overlying soft tissues appear unremarkable.? ? IMPRESSION:? No acute cardiopulmonary abnormalities or focal airspace disease. ? Dictated by: Solomon Scanlon M.D. on 03/11/2021 at 18:12? ?? ECG Data Interpretation: Sinus rhythm at a rate of 70 Normal intervals, normal axis No acute ischemic changes MDM Narrative Medical decision making narrative: 65-year-old gentleman who presents with an interesting constellation of symptoms acute onset at 4:30 a.m. today. Chest tightness with of mild cough pain with deep breathing peripheral neuropathy all 4 extremities throat pain, pain along the posterior occiput without nausea vomiting or diarrhea. Workup is very reassuring. Lab work is essentially normal, chest x-ray is unremarkable, EKG is very reassuring sinus rhythm and no acute ischemic changes. COVID screening is negative. I appreciate no locking he has no a pneumothorax, does not have a widened mediastinum has no clinical signs or symptoms to suggest pulmonary embolism. All findings reviewed with patient. At this point I a suspect that this is a viral syndrome that is not COVID. Recommended conservative management at this time with the understanding that if there are new symptoms, the dyspnea changes or becomes worse or overall he is feeling worse that he is welcome to come back to the ER and I am happy to re-evaluate. Questions are answered and he is safe for home discharge Discharge Plan Departure Patient Disposition: Home Clinical Impression: Acute upper respiratory infection Instructions: DI for Viral Upper Respiratory Infection -- Adult Activity Restrictions/Additional Instructions: Thank you for coming in today I am sorry that you are suffering. I a.m. pleased that today's workup was very reassuring. Specifically, I did not find any evidence for COVID, collapsed lung, bacterial pneumonia, asthma, heart attack or heart attack like syndrome, significant anemia or evidence of other bacterial infection. At this time I suspect that your symptoms are related to a virus -there are many others beside COVID that can cause similar findings. The possibility that you may be experiencing COVID long haul symptoms is entertained. Unfortunately, there is just not enough known about this complication of COVID and the frustrating and persistent symptoms that people are noticing. I would strongly encourage you to follow-up with your primary care physician. I hope you feel better Prescriptions: No Action cyclobenzaprine 10 MG tablet 10 mg PO PRN Qty: 0 0RF desvenlafaxine succinate [Pristiq] 100 MG tablet extended release 24 hr 100 mg PO QDAY Qty: 0 0RF omeprazole 20 mg capsule,delayed release(DR/EC) 20 mg PO BID 0RF diclofenac sodium 75 mg tablet,delayed release (DR/EC) 75 mg PO BID 0RF Hold Instructions: Home Medication placed on hold at Doctor's office Flovent HFA 110 mcg/actuation HFA aerosol inhaler inhalation 0RF ergocalciferol (vitamin D2) 1,250 mcg (50,000 unit) capsule 50,000 unit PO 2XW 0RF metoprolol succinate 25 mg tablet extended release 24 hr 25 mg PO DAILY 0RF oxycodone 5 mg tablet 5 mg PO DAILY PRN (Reason: pain) 0RF Referrals: Rossy Wilson PA-C [Primary Care Provider] -
[2021-03-11 18:30] LABS: Alanine Aminotransferase 29 IU/L (<50); Albumin 4.8 g/dL (3.5-5.0); Albumin Globulin Ratio 1.7 (1.0-2.8); Alkaline Phosphatase 69 U/L (38-126); Aspartate Aminotransferase 38 IU/L (17-59); BUN Creatinine Ratio 13.5 (6-22); Bilirubin Total 0.6 mg/dL (0.2-1.3); Blood Urea Nitrogen 13 mg/dL (9-20); Calcium 10.1 mg/dL (8.4-10.2); Carbon Dioxide 22 mmol/L (22-32); Chloride 104 mmol/L (98-107); Creatine Kinase 442 U/L (55-170); Estimated Glomerular Filt Rate > 60.0 mL/min (>60); Globulin 2.9 g/dL (1.7-4.1); Glucose 86 mg/dL (80-110); HEMOLYSIS 45 (0-50); Lipase 58 U/L (23-300); Magnesium 2.2 mg/dL (1.6-2.3); Potassium 4.1 mmol/L (3.4-5.1); Sodium 136 mmol/L (137-145); Total Protein 7.7 g/dL (6.3-8.2)
[2021-03-11 18:40] LABS: Troponin I 0.014 ng/mL (0.01-0.034)
[2021-03-11 18:45] LABS: CKMB % Relative Index 1.2 % (1.5-5.0)
[2021-03-11 18:47] LABS: COVID19 -Nasal RAPID Negative (Negative)
[2021-03-11 19:29] VITALS: BP 140/73; PULSE 66; RESP 18; TEMP 36.6; O2SAT 94
== END 2021-03-11 19:31 | disposition home or self-care (01) ==
PROVIDERS: Emergency Medicine; Emergency Provider Emergency Medicine; PCP Physician Assistant Medical
DX: J06.9 Acute upper respiratory infection, unspecified (principal); Z86.16 Personal history of COVID-19; Z88.8 Allergy status to other drugs, medicaments and biological substances; Z87.891 Personal history of nicotine dependence; Z20.822 Contact with and (suspected) exposure to COVID-19; R07.9 Chest pain, unspecified
CPT/HCPCS: 36415; 71045; 80053; 82550; 82553; 83690; 83735; 84484; 85025; 87635; 93005; 93010; 99283; 99284; C9803

== ENCOUNTER → 2021-03-22 15:57 | Outpatient (CLI) | payer MEDICARE, OTHER, SELFPAY ==
--- NOTE | 2021-03-22 | DI.MRI.S_ITS ---
PROCEDURE: MR BRAIN (IAC) WWO CON INDICATIONS: Anosmia TECHNIQUE: Noncontrast sagittal T1 spin echo, axial FLAIR, axial gradient echo, axial diffusion and ADC through the brain. Axial thin-slice 3D CISS, coronal TruFISP, axial T1 spin echo with fat saturation through the internal auditory canals. After the administration of contrast, thin slice axial and coronal T1 spin echo with fat saturation through the internal auditory canals, and axial T1 spin echo with fat saturation through the brain. COMPARISON: None. FINDINGS: Image quality: Degraded by patient motion artifact. Cerebellopontine angles: No cerebellopontine angle masses. Inner ear structures appear normally formed. No suspicious enhancement in the internal auditory canal or along the course of the 7th cranial nerve. CSF spaces: Ventricles are normal in size and shape. No extra-axial fluid collections. Basal cisterns are patent. Brain: No intracranial bleeds or mass effects. There is mild, diffuse cerebral volume loss. There are minimal periventricular and subcortical white matter chronic microvascular ischemic changes. Miner-white matter interface is intact. No abnormal intracranial enhancement. Diffusion weighted images demonstrate no acute ischemic insults. Brainstem appears normal. Normal intravascular flow voids are present. Dural sinuses demonstrate normal postcontrast enhancement. Skull and face: Calvarial marrow signal is normal. Orbits appear normal. Sinuses: Sinuses and mastoids are clear. IMPRESSION: 1. No acute intracranial disease process. 2. No abnormal intracranial mass or mass effect. [place] F 3. No suspicious postcontrast enhancement. Dictated by: Analy Lu MD, PhD on 03/23/2021 at 9:06 Approved by: Analy Lu MD, PhD on 03/23/2021 at 9:09
== END ==
PROVIDERS: PCP Physician Assistant Medical; Referring Provider Otolaryngology; Visit Provider Otolaryngology
DX: R43.0 Anosmia (principal)
CPT/HCPCS: 70553; A9579

== ENCOUNTER 2021-06-11 16:28 | Emergency (ER) | payer MEDICARE, OTHER, SELFPAY ==
[2021-06-11 16:41] VITALS: BP 126/74; PULSE 72; RESP 12; TEMP 36.9; O2SAT 97; BMI 35.3
--- NOTE | 2021-06-11 17:36 | PC.NURSE ---
pt reports he scrubbed his finger with soap and water and used some hydrogen peroxide on it.
[2021-06-11] MEDS: TET,DIPH,PERTUSS(ACELL),VAC/PF 0.5 ML SYRINGE IM (17:54)
[2021-06-11] MEDS: LIDO 1%/SOD BICARB 8.4% (10ML) 10 ML SYRINGE INJ (18:58)
--- NOTE | 2021-06-11 19:16 | ED_ITS ---
HPI - Wound/Laceration <Pola Manrique PA-C - Last Filed: 06/11/21 19:50> General Chief Complaint: Wound/Laceration Stated Complaint: sliced lt index finger with razor knife Time Seen by Provider: 06/11/21 18:05 Source: patient Mode of arrival: Ambulatory History of Present Illness HPI narrative: Patient is a 65-year-old male presenting to the emergency department today for evaluation of a left index finger laceration. Patient states that approximately 1515 today he cut his left index finger with a razor blade. He states that the laceration site initially blood profusely but he has since been able to get the bleeding under control. Of note, he denies pain or injury elsewhere. Patient states that he is unsure of his most recent tetanus shot. He denies fever, chills, chest pain, cough, shortness of breath, nausea, vomiting, diarrhea, dysuria, hematuria, constipation, abdominal pain, numbness and tingling in the upper extremities, or any other concerning symptoms. No further concerns are voiced at this time. Related Data Home Medications Medication Instructions Recorded Confirmed cyclobenzaprine 10 mg tablet 10 mg PO PRN #0 05/27/12 02/06/21 desvenlafaxine succinate 100 mg 100 mg PO QDAY #0 06/26/12 02/06/21 tablet,extended release 24 hr (Pristiq) diclofenac sodium 75 mg 75 mg PO BID 06/23/18 02/06/21 tablet,delayed release omeprazole 20 mg capsule,delayed 20 mg PO BID cap 06/23/18 02/06/21 release metoprolol succinate 25 mg 25 mg PO DAILY 08/17/19 02/06/21 tablet,extended release 24 hr ergocalciferol (vitamin D2) 1,250 50,000 unit PO 2XW cap 06/22/20 02/06/21 mcg (50,000 unit) capsule fluticasone propionate 110 INHALATION 06/22/20 02/06/21 mcg/actuation HFA aerosol inhaler oxycodone 5 mg tablet 5 mg PO DAILY PRN tab 02/06/21 02/06/21 Allergies Allergy/AdvReac Type Severity Reaction Status Date / Time hydroxyzine Allergy Mild Verified 03/11/21 18:04 piroxicam Allergy Mild Blister Verified 03/11/21 18:04 topiramate Allergy Mild Blurry Verified 03/11/21 18:04 Vision Review of Systems <Pola Manrique PA-C - Last Filed: 06/11/21 19:50> Constitutional Constitutional: Denies chills, Denies fatigue, Denies fever(s), Denies frequent falls, Denies lethargy and Denies weakness Eyes Eyes: Denies loss of vision ENT Ears, Nose, Mouth, and Throat: Denies dizziness and Denies neck pain Cardiovascular Cardiovascular: Denies chest pain, Denies irregular heart rhythm, Denies lightheadedness, Denies palpitations, Denies dyspnea, Denies dyspnea on exertion and Denies orthopnea Respiratory Respiratory: Denies cough, Denies dyspnea, Denies dyspnea on exertion and Denies wheezing Gastrointestinal Gastrointestinal: Denies abdominal pain, Denies change in bowel habits, Denies diarrhea, Denies nausea and Denies vomiting Genitourinary Genitourinary: Denies hematuria, Denies flank pain, Denies urinary incontinence and Denies urinary urgency Musculoskeletal Musculoskeletal: Denies back pain, Denies muscle weakness, Denies neck pain, Denies numbness and Denies tingling Integumentary/Breasts Skin/Breast: Denies pruritus, Denies erythema, Denies rash and Reports wounds (Laceration left index finger) Neurologic Neurologic: Denies behavioral changes, Denies confusion, Denies dizziness, Denies frequent falls, Denies loss of vision, Denies numbness, Denies tingling and Denies weakness Psychiatric Psychiatric: Denies behavioral changes and Denies confusion Endocrine Endocrine: Denies fatigue and Denies palpitations Allergic/Immunologic Allergic/Immunologic: Denies wheezing Patient History <Pola Manrique PA-C - Last Filed: 06/11/21 19:50> Medical History Degenerative tear of acetabular labrum of right hip Facet arthropathy, lumbar Femoroacetabular impingement of both hips Greater trochanteric bursitis of left hip Herniated nucleus pulposus, lumbar 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 Well-developed patient, in no acute distress. HEAD: Atraumatic. Normocephalic. EYES: Pupils equal round and reactive. Extraocular motions intact. No scleral icterus. No injection or drainage. ENT: Nose without bleeding, purulent drainage. Throat without erythema, tonsillar hypertrophy or exudate. Airway patent. NECK: Trachea midline. Non tender CARDIOVASCULAR: Regular rate and rhythm without murmurs, gallops, or rubs. RESPIRATORY: Clear to auscultation. Breath sounds equal bilaterally. No wheezes, rales, or rhonchi. GASTROINTESTINAL: Abdomen soft, non-tender, nondistended. EXTREMITIES: No edema or joint tenderness. BACK: Nontender without deformity or crepitance. No flank tenderness. NEURO: AOx3. SKIN: No rash or erythema of visible areas. Approximately 2.5 cm slightly C- shaped laceration noted to the palmar aspect of the distal left 2nd finger. No active discharge appreciated. No form body appears obtained on gross examination. Good sensation light touch appreciated throughout the bilateral upper extremities. Gross motor function intact throughout the bilateral upper extremities. Initial Vital Signs Initial Vital Signs: Vital Signs Temperature 98.5 F 06/11/21 16:41 Pulse Rate 72 06/11/21 16:41 Respiratory Rate 12 06/11/21 16:41 Blood Pressure 126/74 06/11/21 16:41 Pulse Oximetry 97 06/11/21 16:41 <tOilia Calzada DO - Last Filed: 06/12/21 02:43> Initial Vital Signs Initial Vital Signs: Vital Signs Temperature 98.5 F 06/11/21 16:41 Pulse Rate 72 06/11/21 16:41 Respiratory Rate 12 06/11/21 16:41 Blood Pressure 126/74 06/11/21 16:41 Pulse Oximetry 97 06/11/21 16:41 Procedures <Pola Manrique PA-C - Last Filed: 06/11/21 19:50> Laceration Repair Laceration 1: Time of procedure: 19:17 Site: hand (Left index finger) Side (If applicable): left Size (cm): 2.5 Description: linear Depth: simple, single layer Local Anesthetic: lidocaine 1% Amount of anesthesia used (mL): 5 Pre-repair: wound explored, irrigated extensively and deep structures intact Skin layer closed with: nylon Size (cm): 5-0 Number of sutures: 7 Technique: simple, interrupted Course <Pola Manrique PA-C - Last Filed: 06/11/21 19:50> Course Course Narrative: Wound explored, no foreign body appears retained. No deep tissue structures intact. 1% buffered lidocaine used for anesthetic. Wound edges closed with 5-0 nylon sutures, [address] Patient tolerated procedure well. Orders Ordered: Discontinued Medications Diphtheria/Tetanus/Acell Pertussis (Tet,Diph,Pertuss(Acell),Vac/Pf 0.5 Ml Syri nge) 0.5 ml IM .ONCE ONE Stop: 06/11/21 17:42 Last Admin: 06/11/21 17:54 Dose: 0.5 ml Documented by: RSTONE Lidocaine/Sodium Bicarbonate (Lido 1%/Sod Bicarb 8.4% (10ml) 10 Ml Syringe) 10 ml INJ NOW ONE Stop: 06/11/21 18:47 Last Admin: 06/11/21 18:58 Dose: 10 ml Documented by: ROBBY Vital Signs Vital signs: Vital Signs - 8 hr 06/11/21 19:34 Pulse Rate 67 Respiratory Rate 14 Blood Pressure 122/73 Pulse Oximetry 97 <Otilia Calzada DO - Last Filed: 06/12/21 02:43> Orders Ordered: Discontinued Medications Diphtheria/Tetanus/Acell Pertussis (Tet,Diph,Pertuss(Acell),Vac/Pf 0.5 Ml Syringe) 0.5 ml IM .ONCE ONE Stop: 06/11/21 17:42 Last Admin: 06/11/21 17:54 Dose: 0.5 ml Documented by: RSTONE Lidocaine/Sodium Bicarbonate (Lido 1%/Sod Bicarb 8.4% (10ml) 10 Ml Syringe) 10 ml INJ NOW ONE Stop: 06/11/21 18:47 Last Admin: 06/11/21 18:58 Dose: 10 ml Documented by: ROBBY Vital Signs Vital signs: Vital Signs - 8 hr 06/11/21 19:34 Pulse Rate 67 Respiratory Rate 14 Blood Pressure 122/73 Pulse Oximetry 97 MDM - Wound/Laceration <Pola Manrique PA-C - Last Filed: 06/11/21 19:50> MDM Narrative Medical decision making narrative: Differential diagnosis to consider but not limited to superficial skin laceration versus deep tissue laceration versus abscess versus cellulitis. Wound edges approximated well with 7 5-0 nylon sutures. Discussed plan with patient to have him follow up with primary care, urgent care, or back here in the emergency department in 7-10 days for further evaluation and possible suture removal. Patient expresses understanding and agrees to plan. Advised patient to refrain from soaking the laceration site until completely healed the placing topical ointments over the incision site until completely healed. Patient states that this time he is comfortable being discharged home is stable for discharge. Strict return precautions were discussed with the patient prior to discharge. Discharge Plan Departure Patient Disposition: Home Clinical Impression: Laceration of left index finger Instructions: DI for Laceration Repair Activity Restrictions/Additional Instructions: *You have been diagnosed with left index finger laceration *What to do: *Please continue to take your regular medications as directed. [ ] New medication prescriptions sent to your pharmacy: [ ] [ ] New medication written as a paper prescription [X] No new medications given You were evaluated in the emergency department today for a left finger laceration. The laceration was closed well with nylon sutures. The sutures should remain in place for 7-14 days, I recommend re-evaluation at 10 days to see if it is appropriate for suture removal. Please refrain from soaking the laceration site to completely healed or placing topical ointments over the laceration site. Recommend he follow up with the primary care provider within the next 2-3 days for further evaluation. Please do not hesitate to return to the emergency department if you experience fever, worsening pain, discharge from laceration site, swelling of the laceration site, or any other concerning symptoms. *Please follow up with your primary care provider in 2-3 days, call for an appointment. Let them know you were seen in the Emergency Department and that we ask that you be seen in follow up. We will electronically transmit a record of today's note if your PCP is in our system *If you do not have a primary care provider please contact the [facility] Resource line at [phone]. They will ask some questions about your medical history and help get you set up with a doctor in the community. *Return to Emergency Department if you should have any new, worsening or concerning symptoms, such as fever greater than 101 F, shaking chills, worsening pain, persistent vomiting or other bothersome symptoms. Prescriptions: No Action cyclobenzaprine 10 MG tablet 10 mg PO PRN Qty: 0 0RF desvenlafaxine succinate [Pristiq] 100 MG tablet extended release 24 hr 100 mg PO QDAY Qty: 0 0RF omeprazole 20 mg capsule,delayed release(DR/EC) 20 mg PO BID 0RF diclofenac sodium 75 mg tablet,delayed release (DR/EC) 75 mg PO BID 0RF Hold Instructions: Home Medication placed on hold at Doctor's office Flovent HFA 110 mcg/actuation HFA aerosol inhaler inhalation 0RF ergocalciferol (vitamin D2) 1,250 mcg (50,000 unit) capsule 50,000 unit PO 2XW 0RF metoprolol succinate 25 mg tablet extended release 24 hr 25 mg PO DAILY 0RF oxycodone 5 mg tablet 5 mg PO DAILY PRN (Reason: pain) 0RF Referrals: Rossy Wilson PA-C [Primary Care Provider] - <Otilia Calzada DO - Last Filed: 06/12/21 02:43> Cosign ED Attending Kumar Attestation: I was immediately available in the department for consultation. Documentation has been reviewed.
[2021-06-11 19:34] VITALS: BP 122/73; PULSE 67; RESP 14; O2SAT 97
== END 2021-06-11 19:36 | disposition home or self-care (01) ==
PROVIDERS: Emergency Provider Physician Assistant; PCP Physician Assistant Medical
DX: S61.211A Laceration without foreign body of left index finger without damage to nail, initial encounter (principal); W45.8XXA Other foreign body or object entering through skin, initial encounter; Z23 Encounter for immunization
CPT/HCPCS: 12001; 90471; 99283; 99284; 90715

== ENCOUNTER → 2021-08-09 15:50 | Outpatient (CLI) | payer MEDICARE, OTHER, SELFPAY ==
--- NOTE | 2021-08-09 | DI.MRI.S_ITS ---
PROCEDURE: MR LUMBAR SPINE WO CON INDICATIONS: Radiculopathy, lumbar region TECHNIQUE: Noncontrast sagittal T1 spin echo and T2 fast echo, sagittal STIR, and T2 fast spin echo through the lumbar spine. In cases with scoliosis, additional coronal T2 fast spin echo may be performed. Additional oblique axial T2 weighted images were obtained through the lower lumbar spine. COMPARISON: [facility], MR, L-SPINE WITHOUT CONTRAST, 05/08/2017, 15:02. [facility], MR, L-SPINE WITHOUT CONTRAST, 11/30/2010, 17:19. [facility], MR, MR LUMBAR SPINE WO CON, 08/07/2018, 20:33. [facility], CR, XR LUMBAR SPINE MIN 4V, 06/22/2020, 8:25. [facility], MR, L-SPINE WITHOUT CONTRAST, 08/01/2007, 11:53. FINDINGS: Image quality: This examination is limited by involuntary motion artifact. Alignment and Curvature: There is minimal anterolisthesis seen at the L4-L5 level. Bone Marrow: Marrow is of normal overall signal. No acute vertebral body compression fractures. Spinal Cord: Conus medullaris terminates at the L1 level. Visualized cord demonstrates normal signal and size. Paraspinous Soft Tissues: No paravertebral masses. T12-L1: Normal appearance. L1-L2: The disc height and disk signal are well-preserved. Mild generalized disc bulge is seen. There is mild right-sided and minimal left-sided neural foraminal narrowing. Minimal central canal narrowing is seen. When comparison is made with the prior images, these findings are similar. L2-L3: Mild loss of disc height is seen. Loss of disc signal is seen. Moderate generalized disc bulge is seen. There is a superimposed central disc protrusion. Mild facet joint hypertrophy is seen. Moderate bilateral neural foraminal narrowing is seen. Moderate central canal narrowing is seen. No significant change from the prior. L3-L4: Akgr-qq-[id number] loss of disc height and disc signal can be seen. At least moderate disc bulge is seen. There is a superimposed central disc protrusion. Mild facet joint hypertrophy is seen. There is moderate to severe right-sided neural foraminal narrowing and there is at least moderate left-sided neural foraminal narrowing. There is a degree of compression seen upon the exiting nerve roots. Moderate central canal narrowing is seen. Stable from the prior study. L4-L5: The disc height is well-preserved. Loss of disc signal is seen at this level. Moderate generalized disc bulge is seen. There is a superimposed central disc protrusion. There is at least moderate facet hypertrophy. Remote right hemilaminectomy change can be seen. There is moderate to severe bilateral neural foraminal narrowing seen, with an associated a degree of compression seen upon the exiting nerve roots. Mild central canal narrowing is seen. Stable from the prior study. L5-S1: The disc height is well-preserved. Loss of disc signal is seen at this level. Mild generalized disc bulge is seen. Mild facet joint hypertrophy is seen. There is moderate left-sided and minimal right-sided neural foraminal narrowing. The central canal is widely patent. When comparison is made with the prior images, these findings are similar. IMPRESSION: Multiple levels of lumbar spine degenerative change are seen, which are similar to 2019. Dictated by: Julian Rockwell M.D. on 08/09/2021 at 15:43 Approved by: Julian Rockwell M.D. on 08/09/2021 at 15:48
== END ==
PROVIDERS: PCP Physician Assistant Medical; Referring Provider Physician Assistant; Visit Provider Physician Assistant
DX: M47.26 Other spondylosis with radiculopathy, lumbar region; M47.27 Other spondylosis with radiculopathy, lumbosacral region
CPT/HCPCS: 72148

== ENCOUNTER → 2021-09-04 10:07 | Outpatient (CLI) | payer MEDICARE, OTHER, SELFPAY ==
[2021-09-04 12:05] LABS: COVID19 -Nasal RAPID Negative (Negative)
== END ==
PROVIDERS: PCP Physician Assistant Medical; Visit Provider Physical Medicine & Rehabilitation
DX: Z20.822 Contact with and (suspected) exposure to COVID-19 (principal)
CPT/HCPCS: 87635; C9803

== ENCOUNTER 2021-09-05 08:03 | Outpatient (CLI) | payer MEDICARE, OTHER, SELFPAY ==
[2021-09-05] VITALS (8 sets, daily range): BP systolic 119–138; BP diastolic 61–88; PULSE 62–69; RESP 13–18; TEMP 36.6; O2SAT 94–99
--- NOTE | 2021-09-05 08:05 | DI.RAD.S_ITS ---
PROCEDURE: PAIN L INTERLAMINAR/CAUDAL INJ INDICATIONS: SPONDYLOSIS COMPARISON: [facility], XA, PAIN L/S FACET INJ/BLK 1ST ANTONIO, 11/24/2020, 9:15. [facility], XA, PAIN L/S TRANSFORAM INJECT ANTONIO, 07/21/2020, 13:29. [facility], MR, MR LUMBAR SPINE WO CON, 08/09/2021, 16:18. FINDINGS: Fluoroscopic spot filming was performed to verify placement of a spinal needle at the L3-L4 level, as labeled on the films. Appropriate location of the needle tip was confirmed by injection of iodinated contrast. IMPRESSION: Intraprocedural examination within normal limits. Dictated by: Julian Rockwell M.D. on 09/05/2021 at 9:05 Approved by: Julian Rockwell M.D. on 09/05/2021 at 9:05
[2021-09-05] MEDS: MIDAZOLAM 5 MG/5 ML VIAL IV (08:55)
[2021-09-05] MEDS: IOPAMIDOL 15 ML VIAL 3 ML INJ (09:01)
[2021-09-05] MEDS: BUPIVACAINE 0.25% (PF) VIAL 2 ML INJ (09:01)
[2021-09-05] MEDS: BETAMETHASONE 30 MG/5 ML MDV 6 MG INJ (09:01)
[2021-09-05] MEDS: DEXAMETHASONE 10 MG/ML VIAL 20 MG INJ (09:02)
--- NOTE | 2021-09-05 09:06 | P.PCN_ITS ---
Date/Time/Diagnoses Date of procedure: 09/05/21 Time of procedure: 09:06 Pre-procedure diagnosis: 1. HNP WITH RADICULAR FEATURES, 2. MULTILEVEL CENTRAL STENOSIS, Post-procedure diagnosis: same Procedure Notes Procedure: 1. FLUOROSCOPICALLY GUIDED CONTRAST CONTROLLED INTERLAMINAR EPIDURAL STEROID INJECTION - L3/4 Indications: Thaddeus is referred by PAC Steve for treatment of Bilateral Foraminal Stenosis L>R LE symptoms. Physician: Lexx Gould Total Fluoroscopy time (seconds): 7 Total sedation minutes: 7 Complications: none Procedure in detail & Post-procedure care: FINDINGS Multilevel Central Spinal Stenosis with Nerve Root Compression DESCRIPTION OF PROCEDURE Fluoroscopically guided, contrast-controlled L3/4 translaminar epidural steroid injection. Following review of allergy and review of potential side effects and complications, including, but not necessarily limited to, infection, allergic reaction, local tissue breakdown, temporary as well as permanent nerve injury, paralysis, stroke and possible , the patient indicated that the patient understood and agreed to proceed. An informed consent document was signed by the patient, witnessed by a nurse, and placed in the patient's chart. Additionally, other treatment options including modalities, medications, and physical therapy were reviewed with the patient. After review of previous anaesthesic history and IV conscious sedation the patient was deemed safe to proceed with today?s procedure with IV conscious sedation as ASA class II designation. Safety time-out was performed to confirm patient ID, procedure to be performed and site of procedure. IV sedation was accomplished with a combination of 3mg of Versed was administered by the RN after DO order, titrated to patient comfort during the course of the procedure while the patient remained responsive to all verbal commands. In the prone position, following sterile prep and drape of the lumbar region, the L3/4 translaminar space was identified fluoroscopically. The skin was anesthetized via a 25-gauge, 1.5-inch needle with 1% lidocaine solution. At this point, a 22-gauge short bevel spinal needle was atraumatically introduced and advanced under fluoroscopic guidance into the region of the L3/4 translaminar space. Depth was confirmed on lateral view. Radiological data, including multiple fluoroscopic views of the lumbar spine, reveal a spinal needle at the L3/4 translaminar space. Lateral views then show placement of the needle in the epidural space. Subsequent views show contrast material flowing superiorly and inferiorly in the epidural space. No vascular or intrathecal uptake is observed. At this point, using loss of resistance technique with saline and air, the epidural space was entered. This was confirmed following negative aspiration with injection of approximately 1.5 cc of Isovue 200, showing excellent epidural flow without vascular or intrathecal uptake. At this point, 1cc of 1% lidocaine solution combined with 3cc or 20mg of dexamethasone and 6mg of betamethasone was injected without incident. The patient tolerated the procedure well without signs or symptoms of complications prior to transfer to the recovery area continued monitoring without incident. The patient was then transferred to the recovery area where they were observed for an appropriate period of time after the injection. The patient reported a VAS score of 6 prior to the procedure and a post- procedure VAS of 0. POST OP INSTRUCTIONS The patient was provided a Pain Log to continue to record their response to the target-specific procedure prior to follow-up visit with their referring physician. Additionally, specific post-injection care instructions and a contact number to our office were provided if concerns arise regarding possible complications associated with the procedure are suspected.
== END 2021-09-05 09:35 | disposition home or self-care (01) ==
PROVIDERS: PCP Physician Assistant Medical; Referring Provider Physical Medicine & Rehabilitation; Visit Provider Physical Medicine & Rehabilitation
DX: M51.16 Intervertebral disc disorders with radiculopathy, lumbar region (principal); M48.061 Spinal stenosis, lumbar region without neurogenic claudication
CPT/HCPCS: 62323; J0702; J1100; J2250

== ENCOUNTER 2021-09-15 16:01 | Emergency (ER) | payer MEDICARE, OTHER, SELFPAY ==
[2021-09-15] VITALS (9 sets, daily range): BP systolic 104–134; BP diastolic 65–75; PULSE 61–68; RESP 12–17; TEMP 36.9; O2SAT 94–99; BMI 35.9
--- NOTE | 2021-09-15 16:22 | DI.RAD.S_ITS ---
PROCEDURE: XR CHEST 1V INDICATIONS: chest pain TECHNIQUE: One view of the chest was acquired. COMPARISON: [facility], CR, XR CHEST 1V, 03/11/2021, 17:53. FINDINGS: Surgical changes and devices: None. Lungs and pleura: Lungs are clear. No pleural effusions or pneumothorax. Mediastinum: Mediastinal contours appear normal. Heart size is normal. Bones and chest wall: No suspicious bony lesions. Overlying soft tissues appear unremarkable. IMPRESSION: No acute cardiopulmonary findings Approved by: Cosmo Wiggins M.D. on 09/15/2021 at 16:34
[2021-09-15 16:34] LABS: Add Manual Diff / Slide Review NO; Basophils Absolute Auto 100 /uL (0-100); Basophils Percent Auto 0.8 % (0-2); Eosinophils Absolute Auto 900 /uL (0-450); Eosinophils Percent Auto 11.9 % (2-4); Hematocrit 41.7 % (41-53); Hemoglobin 14.3 g/dL (13.5-17.5); Lymphocytes Absolute Auto 2500 /uL (1100-4500); Lymphocytes Percent Auto 32.3 % (25-40); Mean Corpuscular HGB Conc 34.3 % (30-36); Mean Corpuscular Hemoglobin 29.8 PG (26-34); Mean Corpuscular Volume 87.1 fL (80-100); Monocytes Absolute Auto 500 /uL (0-900); Monocytes Percent Auto 6.1 % (3-14); Neutrophils Absolute Auto 3900 /uL (1500-7000); Neutrophils Percent Auto 48.9 % (50-75); Platelet Count 198 X10^3/uL (150-400); Red Blood Cell Count 4.78 X10^6/uL (4.5-5.9); Red Cell Distribution Width 12.8 % (11.6-14.8); White Blood Cell Count 7.9 X10^3/uL (4.5-11.0)
[2021-09-15 16:50] LABS: COVID19 -Nasal RAPID Negative (Negative)
[2021-09-15 17:14] LABS: Creatine Kinase 319 U/L (55-170)
[2021-09-15 17:15] LABS: Alanine Aminotransferase 35 IU/L (<50); Aspartate Aminotransferase 33 IU/L (17-59); BUN Creatinine Ratio 13.1 (6-22); Bilirubin Total 0.5 mg/dL (0.2-1.3); Blood Urea Nitrogen 11 mg/dL (9-20); Calcium 8.7 mg/dL (8.4-10.2); Carbon Dioxide 27 mmol/L (22-32); Chloride 106 mmol/L (98-107); Estimated Glomerular Filt Rate > 60 mL/min (>60); Glucose 119 mg/dL (80-110); Magnesium 2.1 mg/dL (1.6-2.3); Potassium 3.8 mmol/L (3.4-5.1); Sodium 138 mmol/L (137-145); Troponin I < 0.012 ng/mL (0.01-0.034)
[2021-09-15 17:16] LABS: Albumin 4.3 g/dL (3.5-5.0); Albumin Globulin Ratio 1.6 (1.0-2.8); Alkaline Phosphatase 68 U/L (38-126); CKMB % Relative Index 1.7 % (1.5-5.0); Creatine Kinase MB 5.34 ng/mL (<2.37); Globulin 2.7 g/dL (1.7-4.1); HEMOLYSIS < 15 (0-50); Lipase 38 U/L (23-300)
--- NOTE | 2021-09-15 17:53 | ED_ITS ---
HPI - Neuro Symptoms/Deficit General Chief Complaint: Neuro Symptoms/Deficit Stated Complaint: Ref. for possible stroke Time Seen by Provider: 09/15/21 17:05 Source: patient Mode of arrival: Family Vehicle History of Present Illness HPI Narrative: Patient is a 65-year-old male history of chronic back pain, ventricular tachycardia, hyperlipidemia presenting today with brief episodes of dizziness. He states that both yesterday and this morning he woke up and went to go walk to the bathroom and felt like he was walking to the left. It lasted for about 20- 30 seconds. He actually was not dizzy or lightheaded just felt off balance. No nausea vomiting. No numbness tingling or weakness. He denies any chest pain or palpitations. He says over the last 2 days is likel to little bit weak he can not really explain. This is never happened to him before. Today around 10:30am had a brief episode of double vision as well but it resolved on its own 1 lasted under 1 minutes. This has never happened to him. No history of vertigo. On Anticoagulants: No Related Data Home Medications Medication Instructions Recorded Confirmed cyclobenzaprine 10 mg tablet 10 mg PO PRN ##0 05/27/12 02/06/21 desvenlafaxine succinate 100 mg 100 mg PO QDAY ##0 06/26/12 02/06/21 tablet,extended release 24 hr (Pristiq) omeprazole 20 mg capsule,delayed 20 mg PO BID 06/23/18 02/06/21 release metoprolol succinate 25 mg 25 mg PO DAILY 08/17/19 02/06/21 tablet,extended release 24 hr ergocalciferol (vitamin D2) 1,250 50,000 unit PO 2XW 06/22/20 02/06/21 mcg (50,000 unit) capsule oxycodone 5 mg tablet 5 mg PO DAILY PRN pain 02/06/21 02/06/21 aspirin 81 mg tablet,delayed 81 mg PO DAILY 08/25/21 release atorvastatin 20 mg tablet 20 mg PO BEDTIME 08/25/21 fluvoxamine 25 mg tablet 25 mg PO BEDTIME 08/25/21 mirtazapine 15 mg tablet 15 mg PO BEDTIME 08/25/21 mupirocin 2 % topical ointment g topical 08/25/21 Previous Rx's Medication Instructions Recorded diclofenac sodium 75 mg 75 mg PO BID #60 tabs 05/27/22 tablet,delayed release diazepam 10 mg tablet (Valium) 10 mg PO .COMPLEX PRN 1-2 prior to 08/29/21 MRI and for possible steroid flare #10 tabs Allergies Allergy/AdvReac Type Severity Reaction Status Date / Time hydroxyzine Allergy Mild Verified 08/25/21 08:58 piroxicam AdvReac Mild Blister Verified 09/05/21 08:40 topiramate AdvReac Mild Blurry Verified 09/05/21 08:40 Vision Review of Systems Review of Systems Narrative: GENERAL: Denies chills, fatigue, malaise, fever, sweats, travel HEENT: Denies sinus pain, ear pain, sore throat, difficulty swallowing, neck pain RESPIRATORY: Denies dyspnea, cough, wheezing, hemoptysis, sputum. CARDIOVASCULAR: Denies chest pain, palpitations, orthopnea, edema GASTROINTESTINAL: Denies nausea, vomiting, abdominal pain, diarrhea, constipation, melena. : Denies dysuria, frequency, incontinence, hematuria, urinary retention, flank pain. MUSCULOSKELETAL: Denies weakness, joint pain, or bony pain SKIN: No rash, no erythema, no pruritus NEUROLOGIC: See HPI PSYCHIATRIC: No concerning psychosocial issues. 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 Scoliosis Sleep apnea Tendinopathy of left gluteal region Surgical History H/O bilateral inguinal hernia repair H/O nasal septoplasty History of ankle surgery Family History Mother Diabetes mellitus Father Back problem Social History marital status: number of children: 2 Smoking Status: Former smoker Smoking Status: Former smoker alcohol intake frequency: 0-2 drinks per day Substance Use Type: does not use Exam Initial Vital Signs Initial Vital Signs: Vital Signs Pulse Rate 68 09/15/21 16:08 Pulse Oximetry 98 09/15/21 16:08 GENERAL: Well-appearing 65-year-old male HEENT: Head atraumatic,EOMI, pupils reactive, face symmetric, moist mucous membranes CARDIOVASCULAR: Regular rate and rhythm without murmurs, rubs or gallops. RESPIRATORY: Breath sounds equal bilaterally, no wheezes rales or rhonchi. ABDOMEN: Soft, nontender. Normoactive bowel sounds all 4 quadrants. No guarding or rebound. EXTREMITIES: Normal range of motion, no clubbing or edema. Neurovascularly intact NEUROLOGICAL: Alert and oriented x4.Normal gait and speech. Cranial nerves II through XII grossly intact. Good arliho-qu-mrhw, good imdu-sq-ozhf, strength equal bilaterally, no dysarthria or aphasia, sensation in tact to soft touch bilaterally, no visual changes, no facial droop SKIN: Warm, dry, no laceration, no petechiae, no rashes or lesions. Scores NIH Stroke Scale Level of Conciousness: Alert, keenly responsive Ask month/age: Answers both questions correctly. Open/close eyes, close hand: Performs both tasks correctly Best gaze horizontal: Normal Visual avendano: No visual loss Facial palsy: Normal symetrical movement Left arm drift: No drift for full 10 sec Right arm drift: No drift for full 10 sec Left leg drift: No drift for full 5 sec Right leg drift: No drift for full 5 sec Limb ataxia: Absent Sensory on face/arms/legs: Normal, no sensory loss Best language: No aphasia, normal Dysarthria: Normal Extinction or inattention: No abnormality Total NIH Stroke scale score: 0 Course Orders Ordered: ED Orders 09/15/21 16:15 COVID19 -Nasal RAPID/Pre-Proc Stat Complete Blood Count AUTO DIFF Stat Comprehensive Metabolic Panel Stat Lipase Stat Magnesium Stat Troponin & CK Cardiac Panel Stat 09/15/21 16:22 XR chest 1V Stat 09/15/21 18:01 CT head/brain wo con Stat Vital Signs Vital signs: Vital Signs - 8 hr 09/15/21 16:19 09/15/21 16:08 09/15/21 16:09 Temperature 98.4 F Pulse Rate 61 68 Respiratory Rate 16 Blood Pressure 134/75 134/75 Pulse Oximetry 99 98 Oxygen Delivery Method Room Air 09/15/21 16:09 09/15/21 16:30 09/15/21 16:30 Temperature Pulse Rate 67 64 Respiratory Rate 16 Blood Pressure 119/69 Pulse Oximetry 99 96 Oxygen Delivery Method 09/15/21 17:00 09/15/21 17:00 09/15/21 17:30 Temperature Pulse Rate 63 Respiratory Rate 14 Blood Pressure 127/65 119/72 Pulse Oximetry 94 Oxygen Delivery Method 09/15/21 17:30 09/15/21 18:00 09/15/21 18:00 Temperature Pulse Rate 61 65 Respiratory Rate 12 16 Blood Pressure 104/65 Pulse Oximetry 96 98 Oxygen Delivery Method 09/15/21 19:03 09/15/21 19:04 09/15/21 19:04 Temperature Pulse Rate 63 61 Respiratory Rate 17 14 Blood Pressure 119/68 Pulse Oximetry 97 99 Oxygen Delivery Method MDM - Neuro Symptoms/Deficit Lab Data Result diagrams: 09/15/21 16:15 09/15/21 16:15 Labs: Lab Results 09/15/21 09/15/21 09/15/21 Range/Units 16:15 16:15 16:15 WBC 7.9 (4.5-11.0) X10^3/uL RBC 4.78 (4.5-5.9) X10^6/uL Hgb 14.3 (13.5-17.5) g/dL Hct 41.7 (41-53) % MCV 87.1 (80-100) fL MCH 29.8 (26-34) PG MCHC 34.3 (30-36) % RDW 12.8 (11.6-14.8) % Plt Count 198 (150-400) X10^3/uL Neut % (Auto) 48.9 L (50-75) % Lymph % (Auto) 32.3 (25-40) % [place] % (Auto) 6.1 (3-14) % Eos % (Auto) 11.9 H (2-4) % Baso % (Auto) 0.8 (0-2) % Neut # (Auto) 3900 (2082-4859) /uL Lymph # (Auto) 2500 (2357-2647) /uL [place] # (Auto) 500 (0-900) /uL Eos # (Auto) 900 H (0-450) /uL Baso # (Auto) 100 (0-100) /uL Sodium 138 (137-145) mmol/L Potassium 3.8 (3.4-5.1) mmol/L Chloride 106 (98-107) mmol/L Carbon Dioxide 27 (22-32) mmol/L BUN 11 (9-20) mg/dL Creatinine 0.84 (0.66-1.25) mg/dL Estimated GFR > 60 (>60) mL/min BUN/Creatinine Ratio 13.1 (6-22) Glucose 119 H (80-110) mg/dL Calcium 8.7 (8.4-10.2) mg/dL Magnesium 2.1 (1.6-2.3) mg/dL Total Bilirubin 0.5 (0.2-1.3) mg/dL AST 33 (17-59) IU/L ALT 35 (<50) IU/L Alkaline Phosphatase 68 (38-126) U/L Total Creatine Kinase 319 H (55-170) U/L CK-MB (CK-2) 5.34 H (<2.37) ng/mL CK-MB (CK-2) Rel Index 1.7 (1.5-5.0) % Troponin I < 0.012 (0.01-0.034) ng/mL Total Protein 7.0 (6.3-8.2) g/dL Albumin 4.3 (3.5-5.0) g/dL Globulin 2.7 (1.7-4.1) g/dL Albumin/Globulin Ratio 1.6 (1.0-2.8) Lipase 38 (23-300) U/L SARS-CoV-2 (PCR) Negative (Negative) Urine Dip Bedside Urine Glucose Negative Bedside Urine Bilirubin - Negative Bedside Urine Ketone - Negative Urine Specific [place] 1.010 Bedside Urine Occult Blood - Negative Bedside Urine pH 6.0 Bedside Urine Protein - Negative Bedside Urine Urobilinogen - Negative Bedside Urine Nitrite - Negative Bedside Urine Leukocytes - Negative Esterase Imaging Data Chest x-ray: Radiologist's Impression: XRay Report Signed Patient: Amol Davis MR#: [id number] : 1955 Acct:[id number] Age/Sex: 65 / M Date of Service: 09/15/21 Loc: ED Accession Number: [id number] ?? Procedure: XR chest 1V Ordering Provider: Otilia Calzada D.O. PROCEDURE:? XR CHEST 1V ? INDICATIONS:? chest pain ? TECHNIQUE:? One view of the chest was acquired.? ? COMPARISON:? [facility], CR, XR CHEST 1V, 03/11/2021, 17:53. ? FINDINGS:? ? Surgical changes and devices:? None.? ? Lungs and pleura:? Lungs are clear.? No pleural effusions or pneumothorax.? ? Mediastinum:? Mediastinal contours appear normal.? Heart size is normal.? ? Bones and chest wall:? No suspicious bony lesions.? Overlying soft tissues ap pear unremarkable.? ? IMPRESSION:? No acute cardiopulmonary findings ? ? ? Approved by: Cosmo Wiggins M.D. on 09/15/2021 at 16:34? CT scan - head: Radiologist's Impression: CT Scan Report Signed Patient: Amol Davis MR#: [id number] : 1955 Acct:[id number] Age/Sex: 65 / M Date of Service: 09/15/21 Loc: ED Accession Number: [id number] ?? Procedure: CT head/brain wo con Ordering Provider: Raissa Vogt D.O. PROCEDURE:? CT HEAD/BRAIN WO CON ? INDICATIONS:? off balance ? TECHNIQUE:? Noncontrast 4.5 mm thick angled axial sections acquired from the foramen magnum to the vertex, with coronal and sagittal reformats.? For radiation dose reduction, the following was used:? automated exposure control, adjustment of mA and/or kV according to patient size.? ? COMPARISON:? [facility], MR, MR BRAIN (IAC) WWO CON, 03/22/2021, 16:16. ? FINDINGS:? Image quality:? Excellent.? ? CSF spaces:? Basal cisterns are patent.? No extra-axial fluid collections.? The ventricles are symmetric in size and shape.? ? Brain:? No intracranial bleeds or masses.? There is cerebral volume loss for age, with resultant ventricular and sulcal prominence.? There are periventricular and deep white matter chronic small vessel ischemic changes.? There is intracranial internal carotid artery atherosclerosis.? ? Skull and face:? Calvarium and visualized facial bones appear intact, without suspicious lesions.? ? Sinuses:? Visualized sinuses and mastoids are clear.? ? IMPRESSION:? No acute intracranial disease process. ? ? Dictated by: Analy Lu MD, PhD on 09/15/2021 at 18:45 ? ? ECG Data Interpretation: Normal sinus rhythm rate 59 W[place] interval 164 QRS [address] changes no T- wave inversions similar to previous EKG MDM Narrative Medical decision making narrative: Patient had 2 episodes briefly of some ataxia which lasted less than 1 minute. Symptoms have completely resolved. Both times it was 1st thing in the morning. Possible is orthostatic hypotension. He has no focal deficits. Symptoms have completely resolved and been resolved. At this time no concern for CVA or TIA at this time. CT head is negative. Blood work is overall reassuring. At this time discussed with patient return to ED if symptoms are worsening or change. Discharge Plan Departure Patient Disposition: Home Clinical Impression: Lightheadedness Instructions: DI for Transient Ischemic Attack Activity Restrictions/Additional Instructions: *You have been diagnosed with lightheadedness *What to do: At this time please continue to monitor. If your symptoms are getting worse you are falling or lasting longer please return to emergency department immediately *Continue to take medications as directed Please continue aspirin 81 mg once daily *Follow up with your primary care provider in 2-3 days or call [phone] *Return to ER if you should have worsening symptoms, falls, weakness, difficulty walking, or any new, worsening or concerning symptoms Prescriptions: No Action cyclobenzaprine 10 MG tablet 10 mg PO PRN Qty: 0 desvenlafaxine succinate [Pristiq] 100 MG tablet extended release 24 hr 100 mg PO QDAY Qty: 0 diazepam [Valium] 10 mg tablet 10 mg PO .COMPLEX MDD 3 tabs PRN (Reason: 1-2 prior to MRI and for possible steroid flare) Qty: 10 0RF Rx Instructions: 10 mg PO PRN; omeprazole 20 mg capsule,delayed release(DR/EC) 20 mg PO BID ergocalciferol (vitamin D2) 1,250 mcg (50,000 unit) capsule 50,000 unit PO 2XW metoprolol succinate 25 mg tablet extended release 24 hr 25 mg PO DAILY oxycodone 5 mg tablet 5 mg PO DAILY PRN (Reason: pain) fluvoxamine 25 mg tablet 25 mg PO BEDTIME Label Comments: TAKE 1 TABLET BY MOUTH DAILY atorvastatin 20 mg tablet 20 mg PO BEDTIME Label Comments: TAKE 1 TABLET BY MOUTH DAILY aspirin 81 mg tablet,delayed release (DR/EC) 81 mg PO DAILY Label Comments: TAKE 1 TABLET BY MOUTH EVERY DAY FOR HEART mirtazapine 15 mg tablet 15 mg PO BEDTIME Label Comments: TAKE 1 TO 2 TABLETS BY MOUTH AT BEDTIME NEEDED FOR INSOMNIA mupirocin 2 % ointment topical diclofenac sodium 75 mg tablet,delayed release (DR/EC) 75 mg PO BID Qty: 60 2RF Referrals: Rossy Wilson PA-C [Primary Care Provider] - Visit Report Forms: Patient Portal/API
--- NOTE | 2021-09-15 18:01 | DI.CT.S_ITS ---
PROCEDURE: CT HEAD/BRAIN WO CON INDICATIONS: off balance TECHNIQUE: Noncontrast 4.5 mm thick angled axial sections acquired from the foramen magnum to the vertex, with coronal and sagittal reformats. For radiation dose reduction, the following was used: automated exposure control, adjustment of mA and/or kV according to patient size. COMPARISON: [facility], MR, MR BRAIN (IAC) WWO CON, 03/22/2021, 16:16. FINDINGS: Image quality: Excellent. CSF spaces: Basal cisterns are patent. No extra-axial fluid collections. The ventricles are symmetric in size and shape. Brain: No intracranial bleeds or masses. There is cerebral volume loss for age, with resultant ventricular and sulcal prominence. There are periventricular and deep white matter chronic small vessel ischemic changes. There is intracranial internal carotid artery atherosclerosis. Skull and face: Calvarium and visualized facial bones appear intact, without suspicious lesions. Sinuses: Visualized sinuses and mastoids are clear. IMPRESSION: No acute intracranial disease process. Dictated by: Analy Lu MD, PhD on 09/15/2021 at 18:45 Approved by: Analy Lu MD, PhD on 09/15/2021 at 18:47
--- NOTE | 2021-09-15 19:03 | PC.NURSE ---
Spouse reports slower speech for about a month. Pt reports yesterday and today after getting out of bed I swayed to the left and took a few steps and felt dizzy/weak. Reports it resolved both days within 30 seconds. Also had some pain under left armpit that radiated down last night, now resolved. Spouse states they called PCP and were instructed to come to ED for stroke rule out.
== END 2021-09-15 19:20 | disposition home or self-care (01) ==
PROVIDERS: Emergency Medicine; Emergency Provider Emergency Medicine; PCP Physician Assistant Medical
DX: R42 Dizziness and giddiness (principal); R07.9 Chest pain, unspecified; Z20.822 Contact with and (suspected) exposure to COVID-19
CPT/HCPCS: 36415; 70450; 71045; 80053; 81003; 82550; 82553; 83690; 83735; 84484; 85025; 87635; 93005; 93010; 99283; 99284; C9803

== ENCOUNTER → 2021-10-16 09:47 | Outpatient (CLI) | payer MEDICARE, OTHER, SELFPAY ==
[2021-10-16 12:04] LABS: COVID19 -Nasal RAPID Negative (Negative)
== END ==
PROVIDERS: PCP Physician Assistant Medical; Visit Provider Physical Medicine & Rehabilitation
DX: Z20.822 Contact with and (suspected) exposure to COVID-19 (principal)
CPT/HCPCS: 87635; C9803

== ENCOUNTER 2021-10-17 14:05 | Outpatient (CLI) | payer MEDICARE, OTHER, SELFPAY ==
[2021-10-17] VITALS (9 sets, daily range): BP systolic 109–129; BP diastolic 55–85; PULSE 61–67; RESP 12–20; TEMP 36.5; O2SAT 96–100
--- NOTE | 2021-10-17 14:06 | DI.RAD.S_ITS ---
PROCEDURE: PAIN L/S TRANSFORAMINAL INJECT INDICATIONS: SPONDYLOSIS COMPARISON: [facility], , PAIN L/S TRANSFORAMINAL INJECT, 12/15/2019, 9:13. FINDINGS: Fluoroscopic spot filming was performed to verify placement of a spinal needle at the L4-L5 level, as labeled on the films. Appropriate location of the needle tip was confirmed by injection of iodinated contrast. IMPRESSION: Intraprocedural examination within normal limits. Dictated by: Julian Rockwell M.D. on 10/17/2021 at 15:30 Approved by: Julian Rockwell M.D. on 10/17/2021 at 15:30
[2021-10-17] MEDS: MIDAZOLAM 2 MG/2 ML VIAL 4 MG IV (15:02)
[2021-10-17] MEDS: BUPIVACAINE 0.25% (PF) VIAL 2 ML INJ (15:03)
[2021-10-17] MEDS: DEXAMETHASONE 10 MG/ML VIAL 20 MG INJ (15:03)
[2021-10-17] MEDS: IOPAMIDOL 15 ML VIAL 3 ML INJ (15:03)
[2021-10-17] MEDS: BETAMETHASONE 30 MG/5 ML MDV 6 MG INJ (15:04)
--- NOTE | 2021-10-17 15:14 | P.PCN_ITS ---
Date/Time/Diagnoses Date of procedure: 10/17/21 Time of procedure: 15:14 Pre-procedure diagnosis: 1. FORAMINAL STENOSIS WITH LE SYMPTOMS Post-procedure diagnosis: same Procedure Notes Procedure: 1. FLUOROSCOPICALLY GUIDED CONTRAST CONTROLLED TRANSFORAMINAL EPIDURAL STEROID INJECTION - LEFT L4/5 Indications: Thaddeus is referred by DOROTHEA Wilson for treatment of Foraminal Stenosis with Left LE Symptoms Physician: Lexx Gould Total Fluoroscopy time (seconds): 12 Total sedation minutes: 16 Complications: none Procedure in detail & Post-procedure care: FINDINGS Foraminal Nerve Root Compression secondary to disc disease and facet hypertrophy DESCRIPTION OF PROCEDURE Following review of allergy and review of potential side effects and complications, including, but not necessarily limited to, infection, allergic reaction, local tissue breakdown, stroke, temporary or permanent nerve injury, paralysis, and possible , the patient indicated that the patient understood and agreed to proceed. An informed consent document was signed by the patient, witnessed by a nurse, and placed in the patient's chart. Additionally, other treatment options including medications, modalities, and physical therapy were reviewed with the patient. After review of previous anaesthesic history and IV conscious sedation the patient was deemed safe to proceed with today?s procedure with IV conscious sedation as ASA class II designation. Safety time-out was performed to confirm patient ID, procedure to be performed and site of procedure. IV sedation was accomplished with a combination of 2mg of Versed administered by the RN after DO order, titrated to patient comfort during the course of the procedure while the patient remained responsive to all verbal commands In the prone position following sterile prep and drape of the lumbar region, the left L4/5 posterior neuroforamen was identified fluoroscopically. The skin was anesthetized via a 25-gauge 1.5-inch needle with 1% lidocaine solution. At this point, a 25-gauge 3.5-inch spinal needle was atraumatically introduced and advanced under fluoroscopic guidance through the posterior left L4/5 neuroforamen to approximately the anterior aspect of the canal. Depth was confirmed on lateral view. Following negative aspiration, injection of approximately 1.5 cc of Isovue 200 under live fluoroscopy in the AP view confirmed excellent flow along the nerve root, into the epidural space without vascular or intrathecal uptake observed Radiological data, including multiple fluoroscopic views of the lumbosacral spine, reveal a spinal needle at the left L4/5 posterior neuroforamen. Subsequent views show flow of contrast material flowing superiorly and inferiorly along the nerve root confirming epidural flow. Subsequently, a test dose of 1.5 cc of 1% lidocaine solution was administered and patient was observed for two minutes for signs or symptoms of complications, including abdominal pain, shortness of breath, bilateral upper or lower extremity weakness, nausea and vomiting, prior to steroid injection. At this point, a total of 3cc or 20mg of dexamethasone and 6mg of betamethasone was injected without incident. The procedure tolerated the procedure well without signs or symptoms of complications prior to transfer to the recovery area continued monitoring without incident. The patient was then transferred to the recovery area where they were observed for an appropriate time after the injection. The patient reported a VAS score of 7 prior to the procedure and a post- procedure VAS of 0. POST OP INSTRUCTIONS The patient was provided a Pain Log to continue to record their response to the target-specific procedure prior to follow-up visit with their referring physician. Additionally, specific post-injection care instructions and a contact number to our office were provided if concerns arise regarding possible complications associated with the procedure are suspected.
== END 2021-10-17 15:40 | disposition home or self-care (01) ==
LOC: RAD 14:06
PROVIDERS: PCP Physician Assistant Medical; Referring Provider Physical Medicine & Rehabilitation; Visit Provider Physical Medicine & Rehabilitation
DX: M48.061 Spinal stenosis, lumbar region without neurogenic claudication (principal); M51.16 Intervertebral disc disorders with radiculopathy, lumbar region
CPT/HCPCS: 64483; 99152; J0702; J1100; J2250

== ENCOUNTER 2022-01-09 14:46 | Outpatient (CLI) | payer MEDICARE, OTHER, SELFPAY ==
[2022-01-09] VITALS (11 sets, daily range): BP systolic 109–146; BP diastolic 59–81; PULSE 63–71; RESP 13–21; TEMP 36.7; O2SAT 96–99
--- NOTE | 2022-01-09 14:49 | DI.RAD.S_ITS ---
PROCEDURE: PAIN L/S TRANSFORAM INJECT ANTONIO COMPARISON: [facility], XA, PAIN L/S TRANSFORAM INJECT ANTONIO, 07/21/2020, 13:29. INDICATIONS: SPONDYLOSIS FINDINGS: Intraoperative fluoroscopy used for bilateral transforaminal L4-5 epidural steroid injections. Needle in appropriate position demonstrates contrast in the epidural space. IMPRESSION: Intraoperative fluoroscopy for transforaminal L4-5 epidural steroid injection. Dictated by: Briana Cruz M.D. on 01/09/2022 at 18:08 Approved by: Briana Cruz M.D. on 01/09/2022 at 18:09
[2022-01-09] MEDS: BETAMETHASONE 30 MG/5 ML MDV 12 MG INJ (15:56)
[2022-01-09] MEDS: DEXAMETHASONE 10 MG/ML VIAL 20 MG INJ (15:56)
[2022-01-09] MEDS: IOPAMIDOL 15 ML VIAL 3 ML INJ (15:56)
[2022-01-09] MEDS: BUPIVACAINE 0.25% (PF) VIAL 2 ML INJ (15:56)
[2022-01-09] MEDS: MIDAZOLAM 2 MG/2 ML VIAL 3 MG IV (16:07)
--- NOTE | 2022-01-09 16:17 | PM.PROC.IR.1 ---
Date/Time/Diagnoses Date of procedure: 01/09/22 Time of procedure: 16:17 Pre-procedure diagnosis: 1. FORAMINAL STENOSIS WITH LE SYMPTOMS Procedure Notes Procedure: 1. FLUOROSCOPICALLY GUIDED CONTRAST CONTROLLED TRANSFORAMINAL EPIDURAL STEROID INJECTION - BILATERAL L4/5 TFESI Indications: Amol is referred by DOROTHEA Wilson for treatment of Foraminal Stenosis with bilateral LE Symptoms Physician: Lexx Gould Total Fluoroscopy time (seconds): 27 Total sedation minutes: 20 Complications: none Procedure in detail & Post-procedure care: FINDINGS Foraminal Nerve Root Compression secondary to disc disease and facet hypertrophy DESCRIPTION OF PROCEDURE Following review of allergy and review of potential side effects and complications, including, but not necessarily limited to, infection, allergic reaction, local tissue breakdown, stroke, temporary or permanent nerve injury, paralysis, and possible , the patient indicated that the patient understood and agreed to proceed. An informed consent document was signed by the patient, witnessed by a nurse, and placed in the patient's chart. Additionally, other treatment options including medications, modalities, and physical therapy were reviewed with the patient. After review of previous anaesthesic history and IV conscious sedation the patient was deemed safe to proceed with today?s procedure with IV conscious sedation as ASA class II designation. Safety time-out was performed to confirm patient ID, procedure to be performed and site of procedure. IV sedation was accomplished with a combination of 3mg of Versed was administered by the RN after DO order, titrated to patient comfort during the course of the procedure while the patient remained responsive to all verbal commands In the prone position following sterile prep and drape of the lumbar region, the right L4/5 posterior neuroforamen was identified fluoroscopically. The skin was anesthetized via a 25-gauge 1.5-inch needle with 1% lidocaine solution. At this point, a 22-gauge 5-inch spinal needle was atraumatically introduced and advanced under fluoroscopic guidance through the posterior right L4/5 neuroforamen to approximately the anterior aspect of the canal. Depth was confirmed on lateral view. Following negative aspiration, injection of approximately 1.5cc of Isovue 200 under live fluoroscopy in the AP view confirmed excellent flow along the nerve root, into the epidural space without vascular or intrathecal uptake observed Radiological data, including multiple fluoroscopic views of the lumbosacral spine, reveal a spinal needle at the right L4/5 posterior neuroforamen. Subsequent views show flow of contrast material flowing superiorly and inferiorly along the nerve root confirming epidural flow. Subsequently, a test dose of 1.5cc of 1% lidocaine solution was administered and patient was observed for two minutes for signs or symptoms of complications, including abdominal pain, shortness of breath, bilateral upper or lower extremity weakness, nausea and vomiting, prior to steroid injection. At this point, a total of 3cc or 20mg of dexamethasone and 6mg betamethasone was injected without incident. Attention was then refocused to the left L4/5 level where the identical procedure was replicated. The procedure tolerated the procedure well without signs or symptoms of complications prior to transfer to the recovery area continued monitoring without incident. The patient was then transferred to the recovery area where they were observed for an appropriate time after the injection. The patient reported a VAS score of 7 prior to the procedure and a post-procedure VAS of 0. POST OP INSTRUCTIONS The patient was provided a Pain Log to continue to record their response to the target-specific procedure prior to follow-up visit with their referring physician. Additionally, specific post-injection care instructions and a contact number to our office were provided if concerns arise regarding possible complications associated with the procedure are suspected.
== END 2022-01-09 16:42 | disposition home or self-care (01) ==
PROVIDERS: PCP Physician Assistant Medical; Referring Provider Physical Medicine & Rehabilitation; Visit Provider Physical Medicine & Rehabilitation
DX: M48.061 Spinal stenosis, lumbar region without neurogenic claudication (principal); M51.16 Intervertebral disc disorders with radiculopathy, lumbar region
CPT/HCPCS: 64483; 99152; J0702; J1100; J2250; J3490

== ENCOUNTER → 2022-08-02 07:08 | Outpatient (CLI) | payer MEDICARE, OTHER, SELFPAY ==
--- NOTE | 2022-08-02 | DI.RAD.S_ITS ---
PROCEDURE: XR CHEST 2V INDICATIONS: R/O HERNIA TECHNIQUE: 2 views of the chest were acquired. COMPARISON: [facility], CT, KIDNEY/ URETER/BLADDER, 09/13/2016, 1:01. [facility], CR, XR CHEST 1V, 03/11/2021, 17:53. [facility], CR, XR CHEST 1V, 09/15/2021, 16:33. FINDINGS: Surgical changes and devices: None. Lungs and pleura: Lungs are clear. No pleural effusions or pneumothorax. Mediastinum: Mediastinal contours are unchanged. No hiatal hernia is seen. Heart size is normal. Bones and chest wall: No suspicious bony abnormalities. Soft tissues appear unremarkable. IMPRESSION: No acute cardiopulmonary abnormality. No hiatal hernia demonstrated. Dictated by: Rajendra Carroll M.D. on 08/02/2022 at 8:28 Approved by: Rajendra Carroll M.D. on 08/02/2022 at 8:32
--- NOTE | 2022-08-02 | DI.RAD.S_ITS ---
PROCEDURE: XR CERVICAL SPINE 2V OR 3V INDICATIONS: neck pain TECHNIQUE: 3 view(s) of the cervical spine were acquired. COMPARISON: None. FINDINGS: Bones: No fractures or dislocations to the T1 level. The lateral masses of C1 appear intact on the odontoid view. No suspicious bony lesions. C5-6 and C6-7 demonstrate disc space narrowing, anterior osteophytes, and endplate degenerative changes. No vertebral body height loss. Soft tissues: No prevertebral soft tissue swelling. IMPRESSION: Degenerative disc disease at C5-6 and C6-7. Dictated by: Maria Isabel Ladd M.D. on 08/02/2022 at 12:36 Approved by: Maria Isabel Ladd M.D. on 08/02/2022 at 12:37
== END ==
PROVIDERS: PCP Physician Assistant Medical; Referring Provider Nurse Practitioner Family; Visit Provider Nurse Practitioner Family
DX: M50.322 Other cervical disc degeneration at C5-C6 level (principal); M54.10 Radiculopathy, site unspecified; R20.2 Paresthesia of skin; K22.89 Other specified disease of esophagus; R12 Heartburn; M54.9 Dorsalgia, unspecified
CPT/HCPCS: 71046; 72040

== ENCOUNTER → 2022-11-12 15:51 | Outpatient (CLI) | payer MEDICARE, OTHER, SELFPAY ==
--- NOTE | 2022-11-12 | DI.MRI.S_ITS ---
PROCEDURE: MR CERVICAL SPINE WO CON INDICATIONS: Radiculopathy, cervical region TECHNIQUE: Noncontrast sagittal T1 spin echo and T2 fast spin echo, sagittal STIR, foraminal oblique sagittal T2 fast spin echo, and axial gradient echo or T2 fast spin echo through the cervical spine. COMPARISON: None. FINDINGS: Image quality: Excellent. Alignment and Curvature: Straightening the normal cervical lordosis. Mild reversal centered at C5-C6. Bone Marrow: Marrow demonstrates normal overall signal. Spinal Cord: Visualized spinal cord has normal size and signal. No cerebellar tonsillar herniation. Paraspinous Soft Tissues: No paravertebral masses. Prevertebral soft tissues are normal in thickness. C2-C3: Minimal posterior disc bulge without central canal stenosis. Facet and uncovertebral arthropathy resulting in moderate right neural foraminal stenosis. No left neural foraminal stenosis. C3-C4: Minimal posterior disc osteophyte complex. No central canal stenosis. Facet and uncovertebral arthropathy resulting in moderate left neural foraminal stenosis. No right neural foraminal stenosis. C4-C5: The small central disc protrusion without central canal stenosis. Facet and uncovertebral arthropathy. Mild right neural foraminal stenosis. No left neural foraminal stenosis. C5-C6: Posterior disc osteophyte complex. Mild central canal stenosis. Facet and uncovertebral arthropathy. Moderate to severe bilateral neural foraminal stenosis. C6-C7: Severe disc desiccation height loss. Minimal posterior disc bulge. No central canal stenosis. Facet and uncovertebral arthropathy. Moderate left and mild right neural foraminal stenosis. C7-T1: Normal appearance. IMPRESSION: 1. Multilevel degenerative changes of the cervical spine. 2. Mild central canal stenosis at C5-C6. Otherwise, no significant central canal stenosis. 3. Multilevel neural foraminal narrowing as described above, most pronounced at C5-C6 with moderate to severe bilateral neural foraminal stenosis. Dictated by: Maximo Joyce M.D. on 11/13/2022 at 9:52 Approved by: Maxiom Joyce M.D. on 11/13/2022 at 10:01
== END ==
PROVIDERS: PCP Physician Assistant Medical; Referring Provider Physician Assistant Medical; Visit Provider Physician Assistant Medical
DX: M47.22 Other spondylosis with radiculopathy, cervical region (principal); M48.02 Spinal stenosis, cervical region
CPT/HCPCS: 72141

== ENCOUNTER → 2022-12-31 07:08 | Outpatient (CLI) | payer MEDICARE, OTHER, SELFPAY ==
--- NOTE | 2022-12-31 | DI.MRI.S_ITS ---
PROCEDURE: MR LUMBAR SPINE WO/W CON INDICATIONS: Spinal stenosis, lumbar region with neurogenic cla TECHNIQUE: Noncontrast sagittal T1 spin echo and T2 fast echo, sagittal STIR, and T2 fast spin echo through the lumbar spine. In cases with scoliosis, additional coronal T2 fast spin echo may be performed. COMPARISON: None. FINDINGS: Image quality: Excellent. Alignment and Curvature: Grade 1 anterior spondylolisthesis L4-5 Bone Marrow: L4-5 interbody fusion with posterior agatha and screw instrumentation and right hemilaminectomy. No abnormal enhancement throughout the exam Spinal Cord: Conus medullaris terminates at the L1 level. Visualized cord demonstrates normal signal and size. Paraspinous Soft Tissues: No paravertebral masses. T12-L1: Normal appearance. L1-L2: Normal appearance. L2-L3: Disc space narrowing and circumferential disc bulge. Hypertrophic facet joints present. Mild central stenosis. Moderate right and mild left foraminal stenosis L3-L4: Disc space narrowing and circumferential disc bulge with hypertrophic facet joints results in [id number] central stenosis. Moderate right and mild left foraminal stenosis L4-L5: Discectomy and fusion. No central stenosis present. Mild to moderate bilateral foraminal stenosis. L5-S1: Disc space is maintained. No central stenosis. Moderate left and no right foraminal stenosis. IMPRESSION: Multilevel degenerative disc disease and arthropathy associated with mild to moderate central stenosis L3-4 with moderate right foraminal stenosis. Instrumented L4-5 discectomy and fusion. No evidence abnormal enhancement Approved by: Cosmo Wiggins M.D. on 12/31/2022 at 14:49
== END ==
PROVIDERS: PCP Physician Assistant Medical; Referring Provider Orthopaedic Surgery; Visit Provider Orthopaedic Surgery
DX: M48.062 Spinal stenosis, lumbar region with neurogenic claudication (principal); M51.36 Other intervertebral disc degeneration, lumbar region; M47.816 Spondylosis without myelopathy or radiculopathy, lumbar region; Z98.1 Arthrodesis status
CPT/HCPCS: 72158; A9579

== ENCOUNTER 2023-01-17 08:33 | Outpatient (CLI) | payer MEDICARE, OTHER, SELFPAY ==
[2023-01-17] VITALS (8 sets, daily range): BP systolic 124–136; BP diastolic 72–87; PULSE 69–77; RESP 14–22; TEMP 36.7; O2SAT 93–98
--- NOTE | 2023-01-17 08:35 | DI.RAD.S_ITS ---
PROCEDURE: PAIN C/T INTERLAMINAR INJECT INDICATIONS: SPINAL STENOSIS COMPARISON: None. FINDINGS: Fluoroscopic spot filming was performed to verify placement of spinal needles at the C6-7 level(s), as labeled on the films. Appropriate location(s) of the needle tip(s) was confirmed by injection of iodinated contrast. IMPRESSION: Fluoroscopic guidance Approved by: Cosmo Wiggins M.D. on 01/17/2023 at 19:29
[2023-01-17] MEDS: MIDAZOLAM 2 MG/2 ML VIAL IV (09:40)
[2023-01-17] MEDS: fentaNYL 100 MCG/2 ML INJ 50 MCG IV (09:40)
[2023-01-17] MEDS: DEXAMETHASONE 10 MG/ML VIAL 20 MG INJ (09:48)
[2023-01-17] MEDS: iopamidoL 15 ML VIAL 3 ML INJ (09:48)
[2023-01-17] MEDS: BUPIVACAINE 0.25% (PF) VIAL 2 ML INJ (09:48)
--- NOTE | 2023-01-17 10:09 | P.PCN_ITS ---
Date/Time/Diagnoses Date of procedure: 01/17/23 Time of procedure: 10:10 Pre-procedure diagnosis: 1. CERVICAL STENOSIS, 2. CERVICAL HNP WITH UPPER EXTREMITY RADICULAR FEATURES Post-procedure diagnosis: same Procedure Notes Procedure: 1. FLUORSCOPICALLY GUIDED CONTRAST CONTROLLED INTERLAMINAR EPIDURAL STEROID INJECTION - C6/7 TL TALYA Indications: Amol is referred by Rei Wilson for treatment of Cervical HNP with Upper Extremity Paresthesias. Physician: Lexx Gould Total Fluoroscopy time (seconds): 35 Total sedation minutes: 18 Complications: none Procedure in detail & Post-procedure care: FINDINGS Cervical Stenosis due to disc deterioration and nerve root irritation and nerve root irritation DESCRIPTION OF PROCEDURE Fluoroscopically guided, contrast-controlled C6/7 translaminar epidural steroid injection with conscious sedation. Following review of allergy and review of potential side effects and complications, including, but not necessarily limited to, infection, allergic reaction, local tissue breakdown, temporary as well as permanent nerve injury, stroke, paralysis, and possible , the patient indicated that patient understood and agreed to proceed. An informed consent document was signed by the patient, witnessed by a nurse, and placed in the patient's chart. Additionally, other treatment options including modalities, medications, and physical therapy were reviewed with the patient. After review of previous anaesthesic history and IV conscious sedation the patient was deemed safe to proceed with today?s procedure with IV conscious sedation as ASA class II designation. Safety time-out was performed to confirm patient ID, procedure to be performed and site of procedure. IV sedation was accomplished with a combination of 2mg of Versed and 50mcg of Fentanyl administered by the RN after DO order, titrated to patient comfort during the course of the procedure while the patient remained responsive to all verbal commands. In the prone position, following sterile prep and drape of the cervical region, the C6/7 translaminar space was identified fluoroscopically. The skin was anesthetized via a 25-gauge 1.5-inch needle with 1% lidocaine solution. At this point, a 25-gauge, 2.5-inch short bevel spinal needle was atraumatically introduced and advanced under fluoroscopic guidance into epidural space at the C6/7 translaminar space. Depth was confirmed on lateral view. Radiological data, including multiple fluoroscopic views of the cervical spine, reveal a spinal needle at the C6/7 translaminar space. Lateral views then show placement of the needle in the epidural space. Subsequent views show contrast material flowing superiorly and inferiorly in the epidural space. DSA fluoroscopy with live contrast injection, once again, confirmed no vascular or intrathecal uptake. At this point, using loss of resistance technique with saline and air, the epidural space was entered. Following negative aspiration, injection of ap proximately 1.5 cc of Isovue-200 with live fluoroscopy in the AP view confirmed epidural flow in the epidural space without vascular or intrathecal uptake observed. Subsequently, a test dose of 1 cc of 1% lidocaine solution was injected and patient was observed for two minutes without signs or symptoms of complications, including abdominal pain, shortness of breath, bilateral upper or lower extremity weakness, nausea and vomiting, prior to steroid injection. At this point, 2cc or 20mg of dexamethasone was then injected without incident. The patient tolerated the procedure well without signs or symptoms of complications prior to being transferred to the recovery area for further monitoring, The patient was then transferred to the recovery area where they were observed for an appropriate period of time after the injection. The patient reported a VAS score of 6 prior to the procedure and a post-procedure VAS of 0. POST OP INSTRUCTIONS The patient was provided a Pain Log to continue to record their response to the target-specific procedure prior to follow-up visit with the referring provider. Additionally, specific post-injection care instructions and a contact number to our office were provided if concerns arise regarding possible complications associated with the procedure are suspected.
== END 2023-01-17 10:20 | disposition home or self-care (01) ==
LOC: RAD 08:35
PROVIDERS: PCP Physician Assistant Medical; Referring Provider Physical Medicine & Rehabilitation; Visit Provider Physical Medicine & Rehabilitation
DX: M54.12 Radiculopathy, cervical region (principal); M48.02 Spinal stenosis, cervical region
CPT/HCPCS: 62321; 99152; J1100; J2250; J3010; J3490

== ENCOUNTER 2023-02-12 09:03 | Outpatient (CLI) | payer MEDICARE, OTHER, SELFPAY ==
[2023-02-12] VITALS (9 sets, daily range): BP systolic 121–139; BP diastolic 63–77; PULSE 72–81; RESP 14–16; TEMP 36.9; O2SAT 96–100
--- NOTE | 2023-02-12 09:45 | DI.RAD.S_ITS ---
PROCEDURE: PAIN L INTERLAMINAR/CAUDAL INJ INDICATIONS: SPONDYLOSIS COMPARISON: [facility], CR, XR LUMBAR SPINE 2 OR 3 VIEWS, 01/01/2023, 9:52. [facility], MR, MR LUMBAR SPINE WO/W CON, 12/31/2022, 7:12. [facility], CT, CT LUMBAR SPINE WITHOUT CONTRAST, 12/11/2022, 13:37. [facility], CR, XR LUMBAR SPINE 2 OR 3 VIEWS, 12/05/2022, 8:42. FINDINGS: Fluoroscopic spot filming was performed to verify placement of spinal needles at the L3-L4 level(s), as labeled on the films. Appropriate location(s) of the needle tip(s) was confirmed by injection of iodinated contrast. Note is made of discectomy and spinal fusion at L4-L5. IMPRESSION: Fluoroscopy for pain management. Dictated by: Pebbles Arreola M.D. on 02/12/2023 at 10:58 Approved by: Pebbles Arreola M.D. on 02/12/2023 at 10:59
[2023-02-12] MEDS: MIDAZOLAM 2 MG/2 ML VIAL IV (10:27)
[2023-02-12] MEDS: BUPIVACAINE 0.25% (PF) VIAL 2 ML INJ (10:32)
[2023-02-12] MEDS: BETAMETHASONE 30 MG/5 ML MDV 12 MG INJ (10:33)
[2023-02-12] MEDS: iopamidoL 15 ML VIAL 3 ML INJ (10:33)
[2023-02-12] MEDS: DEXAMETHASONE 10 MG/ML VIAL INJ (10:33)
--- NOTE | 2023-02-12 10:41 | P.PCN_ITS ---
Date/Time/Diagnoses Date of procedure: 02/12/23 Time of procedure: 10:41 Pre-procedure diagnosis: 1. HNP WITH RADICULAR FEATURES, 2. MULTILEVEL CENTRAL STENOSIS, Post-procedure diagnosis: same Procedure Notes Procedure: 1. FLUOROSCOPICALLY GUIDED CONTRAST CONTROLLED INTERLAMINAR EPIDURAL STEROID INJECTION - L3/4 Indications: Amol is referred by Dr. Magana for treatment of Bilateral Foraminal Stenosis L>R LE symptoms. Physician: Lexx Gould Total Fluoroscopy time (seconds): 8 Total sedation minutes: 11 Complications: none Procedure in detail & Post-procedure care: FINDINGS Multilevel Central Spinal Stenosis with Nerve Root Compression DESCRIPTION OF PROCEDURE Fluoroscopically guided, contrast-controlled L3/4 translaminar epidural steroid injection. Following review of allergy and review of potential side effects and complications, including, but not necessarily limited to, infection, allergic reaction, local tissue breakdown, temporary as well as permanent nerve injury, paralysis, stroke and possible , the patient indicated that the patient understood and agreed to proceed. An informed consent document was signed by the patient, witnessed by a nurse, and placed in the patient's chart. Additionally, other treatment options including modalities, medications, and physical therapy were reviewed with the patient. After review of previous anaesthesic history and IV conscious sedation the patient was deemed safe to proceed with today?s procedure with IV conscious sedation as ASA class II designation. Safety time-out was performed to confirm patient ID, procedure to be performed and site of procedure. IV sedation was accomplished with a combination of 2mg of Versed was administered by the RN after DO order, titrated to patient comfort during the course of the procedure while the patient remained responsive to all verbal commands. In the prone position, following sterile prep and drape of the lumbar region, the L3/4 translaminar space was identified fluoroscopically. The skin was anesthetized via a 25-gauge, 1.5-inch needle with 1% lidocaine solution. At this point, a 22-gauge short bevel spinal needle was atraumatically introduced and advanced under fluoroscopic guidance into the region of the L3/4 translaminar space. Depth was confirmed on lateral view. Radiological data, including multiple fluoroscopic views of the lumbar spine, reveal a spinal needle at the L3/4 translaminar space. Lateral views then show placement of the needle in the epidural space. Subsequent views show contrast material flowing superiorly and inferiorly in the epidural space. No vascular or intrathecal uptake is observed. At this point, using loss of resistance technique with saline and air, the epidural space was entered. This was confirmed following negative aspiration with injection of approximately 1.5 cc of Isovue 200, showing excellent epidural flow without vascular or intrathecal uptake. At this point, 1cc of 1% lidocaine solution combined with 2cc or 10mg of dexamethasone and 6mg of betamethasone was injected without incident. The patient tolerated the procedure well without signs or symptoms of complications prior to transfer to the recovery area continued monitoring without incident. The patient was then transferred to the recovery area where they were observed for an appropriate period of time after the injection. The patient reported a VAS score of 7 prior to the procedure and a post- procedure VAS of 0. POST OP INSTRUCTIONS The patient was provided a Pain Log to continue to record their response to the target-specific procedure prior to follow-up visit with their referring physician. Additionally, specific post-injection care instructions and a contact number to our office were provided if concerns arise regarding possible complications associated with the procedure are suspected.
== END 2023-02-12 10:57 | disposition home or self-care (01) ==
LOC: RAD 09:04
PROVIDERS: PCP Physician Assistant Medical; Referring Provider Physical Medicine & Rehabilitation; Visit Provider Physical Medicine & Rehabilitation
DX: M51.16 Intervertebral disc disorders with radiculopathy, lumbar region (principal); M48.061 Spinal stenosis, lumbar region without neurogenic claudication
CPT/HCPCS: 62323; 99152; J0702; J1100; J2250; J3490

== ENCOUNTER 2024-04-09 09:10 | Outpatient (CLI) | payer MEDICARE, OTHER, SELFPAY ==
[2024-04-09] VITALS (9 sets, daily range): BP systolic 123–137; BP diastolic 62–79; PULSE 74–80; RESP 12–17; TEMP 36.4; O2SAT 94–100
--- NOTE | 2024-04-09 09:12 | DI.RAD.S_ITS ---
PROCEDURE: PAIN C/T INTERLAMINAR INJECT INDICATIONS: C 6/7 TL TALYA COMPARISON: [facility], , PAIN C/T INTERLAMINAR INJECT, 01/17/2023, 9:52. FINDINGS/IMPRESSION: Fluoroscopic spot filming was performed to verify placement of spinal needles at the C6-C7 level(s), as labeled on the films. Appropriate location(s) of the needle tip(s) was confirmed by injection of iodinated contrast. Partially visualized fusion hardware in the cervical spine Dictated by: Barrington Nickerson M.D. on 04/10/2024 at 10:31 Approved by: Barrington Nickerson M.D. on 04/10/2024 at 10:31
[2024-04-09] MEDS: MIDAZOLAM 2 MG/2 ML VIAL IV (10:12)
[2024-04-09] MEDS: DEXAMETHASONE 10 MG/ML VIAL 30 MG INJ (10:17)
[2024-04-09] MEDS: BUPIVACAINE 0.25% (PF) VIAL 2 ML INJ (10:17)
[2024-04-09] MEDS: iopamidoL 15 ML VIAL 3 ML INJ (10:17)
--- NOTE | 2024-04-09 10:34 | P.PCN_ITS ---
Date/Time/Diagnoses Date of procedure: 04/09/24 Time of procedure: 10:35 Pre-procedure diagnosis: 1. CERVICAL STENOSIS, 2. CERVICAL HNP WITH UPPER EXTREMITY RADICULAR FEATURES Post-procedure diagnosis: same Procedure Notes Procedure: 1. FLUORSCOPICALLY GUIDED CONTRAST CONTROLLED INTERLAMINAR EPIDURAL STEROID INJECTION - C6/7 TL TALYA Indications: Amol is referred by DOROTHEA Wilson for treatment of Cervical HNP with Upper Extremity Paresthesias. Physician: Lexx Gould Total Fluoroscopy time (seconds): 23 Total sedation minutes: 16 Complications: none Procedure in detail & Post-procedure care: FINDINGS Cervical Stenosis due to disc deterioration and nerve root irritation and nerve root irritation DESCRIPTION OF PROCEDURE Fluoroscopically guided, contrast-controlled C6/7 translaminar epidural steroid injection with conscious sedation. Following review of allergy and review of potential side effects and complications, including, but not necessarily limited to, infection, allergic reaction, local tissue breakdown, temporary as well as permanent nerve injury, stroke, paralysis, and possible , the patient indicated that patient understood and agreed to proceed. An informed consent document was signed by the patient, witnessed by a nurse, and placed in the patient's chart. Additionally, other treatment options including modalities, medications, and physical therapy were reviewed with the patient. After review of previous anaesthesic history and IV conscious sedation the patient was deemed safe to proceed with today?s procedure with IV conscious sedation as ASA class II designation. Safety time-out was performed to confirm patient ID, procedure to be performed and site of procedure. IV sedation was accomplished with a combination of 2mg of Versed administered by the RN after DO order, titrated to patient comfort during the course of the procedure while the patient remained responsive to all verbal commands. In the prone position, following sterile prep and drape of the cervical region, the C6/7 translaminar space was identified fluoroscopically. The skin was anesthetized via a 25-gauge 1.5-inch needle with 1% lidocaine solution. At this point, a 25-gauge, 2.5-inch short bevel spinal needle was atraumatically introduced and advanced under fluoroscopic guidance into epidural space at the C6/7 translaminar space. Depth was confirmed on lateral view. Radiological data, including multiple fluoroscopic views of the cervical spine, reveal a spinal needle at the C6/7 translaminar space. Lateral views then show placement of the needle in the epidural space. Subsequent views show contrast material flowing superiorly and inferiorly in the epidural space. DSA fluoroscopy with live contrast injection, once again, confirmed no vascular or intrathecal uptake. At this point, using loss of resistance technique with saline and air, the epidural space was entered. Following negative aspiration, injection of approximately 1.5 cc of Isovue-200 with live fluoroscopy in the AP view confirmed epidural flow in the epidural space without vascular or intrathecal uptake observed. Subsequently, a test dose of 1 cc of 1% lidocaine solution was injected and patient was observed for two minutes without signs or symptoms of complications, including abdominal pain, shortness of breath, bilateral upper or lower extremity weakness, nausea and vomiting, prior to steroid injection. At this point, 3cc or 30mg of dexamethasone was then injected without incident. The patient tolerated the procedure well without signs or symptoms of compl ications prior to being transferred to the recovery area for further monitoring, The patient was then transferred to the recovery area where they were observed for an appropriate period of time after the injection. The patient reported a VAS score of 7 prior to the procedure and a post-procedure VAS of 1. POST OP INSTRUCTIONS The patient was provided a Pain Log to continue to record their response to the target-specific procedure prior to follow-up visit with the referring provider. Additionally, specific post-injection care instructions and a contact number to our office were provided if concerns arise regarding possible complications associated with the procedure are suspected.
== END 2024-04-09 10:45 | disposition home or self-care (01) ==
LOC: RAD 09:11
PROVIDERS: PCP Physician Assistant Medical; Referring Provider Physical Medicine & Rehabilitation; Visit Provider Physical Medicine & Rehabilitation
DX: M48.02 Spinal stenosis, cervical region (principal); M50.123 Cervical disc disorder at C6-C7 level with radiculopathy
CPT/HCPCS: 62321; 99152; J1100; J2250; J3490

== ENCOUNTER 2024-06-16 08:12 | Outpatient (CLI) | payer MEDICARE, OTHER, SELFPAY ==
[2024-06-16] VITALS (8 sets, daily range): BP systolic 124–132; BP diastolic 69–89; PULSE 62–69; RESP 16–17; TEMP 36.4; O2SAT 95–100
[2024-06-16] MEDS: MIDAZOLAM 2 MG/2 ML VIAL IV (09:16)
[2024-06-16] MEDS: BUPIVACAINE 0.5% (PF) 10 ML VIAL 5 ML INJ (09:21)
[2024-06-16] MEDS: LIDOCAINE 1% 20 ML 5 ML INJ (09:21)
[2024-06-16] MEDS: iopamidoL 15 ML VIAL 3 ML INJ (09:21)
--- NOTE | 2024-06-16 11:08 | P.PCN_ITS ---
Date/Time/Diagnoses Date of procedure: 06/16/24 Time of procedure: 11:08 Pre-procedure diagnosis: 1. FACET ARTHROPATHY Post-procedure diagnosis: same Procedure Notes Procedure: 1. BILATERAL- L4, L5 and S1 DIAGNOSTIC MB BLOCKS with LA Anesthetic Indications: Amol is referred by DOROTHEA Wilson for treatment of Bilateral Axial LBP. Physician: Lexx Gould Total Fluoroscopy time (seconds): 12 Total sedation minutes: 17 Complications: none Procedure in detail & Post-procedure care: DESCRIPTION OF PROCEDURE Fluoroscopically guided, contrast-controlled bilateral L4, L5 and S1 medial branch blocks with 0.5cc of 0.5% Marcaine. Following review of allergy and review of potential side effects and complications, including, but not necessarily limited to, infection, allergic reaction, local tissue breakdown, nerve injury, paralysis, stroke and possible , the patient indicated that the patient understood and agreed to proceed. An informed consent document was signed by the patient, witnessed by a nurse, and placed in the patient's chart. After review of previous anaesthesic history and IV conscious sedation the patient was deemed safe to proceed with today's procedure with IV conscious sedation as ASA class II designation. Safety time-out was performed to confirm patient ID, procedure to be performed and site of procedure. IV sedation was accomplished with a combination of 2mg of Versed was administered by the RN after DO order, titrated to patient comfort during the course of the procedure while the patient remained responsive to all verbal commands In the prone position, following sterile prep and drape of the lumbar region, the right L4, L5 and S1 anatomical location of the medial branch of the dorsal ramus was identified fluoroscopically. Subsequently an anesthetic skin wheal using 1% lidocaine solution was initiated at each of the anatomical spots. Subsequently then a 22-gauge 3.5-inch spinal needle was atraumatically introduced and advanced under fluoroscopic guidance at each of the corresponding sites at the right L4, L5 and S1 MB. After negative aspiration, 0.2cc of Isovue 200 was injected, confirming placement without vascular or intrathecal uptake. Subsequently then 0.5cc of 0.5% Marcaine solution was injected at each of the corresponding sites at the right L4, L5 and S1 medial branch locations. The identical procedure was replicated on the left. The patient tolerated the procedure well without signs or symptoms of complications prior to transfer to the recovery area continued monitoring without incident. Post-procedure, the patient was monitored initiating provocative activities to measure the amount of relief from block of the facetogenic pain. The patient reported a VAS of 7 prior to the procedure and a post-procedure VAS of 1. It has been a pleasure to assist in the diagnostic and therapeutic care of your patient. POST OP INSTRUCTIONS The patient was provided with a Pain Log to complete over the next several hours and subsequent days prior to the patient's follow up with the ordering physician. If the patient has addictions counselor assistant relief to the solution applied, then they may be a candidate for medial branch rhizotomy. The patient is aware, was provided, once again, with a Pain Log and will follow up with the referring physician for review and clinical correlation
== END 2024-06-16 09:52 | disposition home or self-care (01) ==
PROVIDERS: PCP Physician Assistant Medical; Referring Provider Physical Medicine & Rehabilitation; Visit Provider Physical Medicine & Rehabilitation
DX: M47.816 Spondylosis without myelopathy or radiculopathy, lumbar region (principal); M47.817 Spondylosis without myelopathy or radiculopathy, lumbosacral region
CPT/HCPCS: 64493; 64494; 99152; J2250

== ENCOUNTER 2024-09-18 00:02 | Emergency (ER) | payer MEDICARE, OTHER, SELFPAY ==
--- NOTE | 2024-09-18 00:12 | ED.BACK ---
HPI - Back Pain/Injury General Chief Complaint: Back Pain/Injury Stated Complaint: Back Pain, Nausea Time Seen by Provider: 09/18/24 00:12 History of Present Illness HPI Narrative: Patient is a 69-year-old male with history of chronic back pain, V-tach, hyperlipidemia, presenting from home for evaluation of low back pain patient states that he is coming in for bilateral flank pain. He states that this is not his typical low back pain, he states that his back pain typically is tingling weakness to his lower extremity, he states this is to his bilateral flanks states that it started 3 hours ago, states that it feels deep nothing making it better or worse. Denies any other symptoms at this time, denies any trauma or falls not on any blood thinners. States he did try taking his normal medication for his back pain at home but it did not help. Related Data Home Medications ?Medication ?Instructions ?Recorded ?Confirmed cyclobenzaprine 10 mg tablet 10 mg PO PRN ##0 05/27/12 07/01/24 metoprolol succinate 25 mg 25 mg PO DAILY 08/17/19 07/01/24 tablet,extended release 24 hr aspirin 81 mg tablet,delayed 81 mg PO DAILY 08/25/21 07/01/24 release omeprazole 40 mg capsule,delayed 40 mg PO DAILY 01/09/23 07/01/24 release doxepin 5 % topical cream 1 applic topical ONCE 03/18/24 07/01/24 oxycodone 10 mg tablet 10 mg PO 4XD PRN 03/18/24 07/01/24 clobetasol 0.05 % topical cream topical 05/27/24 07/01/24 morphine 15 mg tablet,extended 15 mg PO Q12H PRN 07/01/24 07/01/24 release Previous Rx's ?Medication ?Instructions ?Recorded diclofenac sodium 75 mg 75 mg PO BID #60 tabs 08/25/21 tablet,delayed release duloxetine 30 mg capsule,delayed 30 mg PO QPM #60 caps 07/01/24 release (Cymbalta) trazodone 100 mg tablet 100 mg PO BEDTIME PRN insomnia #60 07/01/24 tabs diazepam 5 mg tablet (Valium) 5 mg PO BEDTIME PRN muscle spasm 5 09/18/24 days #5 tabs Allergies Allergy/AdvReac Type Severity Reaction Status Date / Time hydroxyzine Allergy Mild Verified 09/18/24 00:24 piroxicam AdvReac Mild Blister Verified 09/18/24 00:24 topiramate AdvReac Mild Blurry Verified 09/18/24 00:24 Vision Review of Systems Review of Systems Narrative: General: Denies fever, chills, weight loss HEENT: Denies headache, eye drainage, eye irritation, head trauma, sore throat, voice change Cardiovascular: Denies any chest pain, palpitations, tachycardia Respiratory: Denies any shortness of breath, cough, wheeze, stridor GI/: Positive bilateral flank pain, positive nausea Denies any abdominal pain,vomiting, diarrhea, bright red blood per rectum, melanotic stools, urinary frequency, urinary retention, dysuria, hematuria MSK: Denies any joint pain, muscle pains, swelling Skin: Denies any rashes, lesions, discoloration Neuro: Denies any headache, lightheadedness, dizziness, fainting, weakness Psych: Denies SI/HI Patient History Medical History Cervical radiculopathy Degenerative tear of acetabular labrum of right hip Facet arthropathy, lumbar Femoroacetabular impingement of both hips GERD (gastroesophageal reflux disease) Greater trochanteric bursitis of left hip Herniated nucleus pulposus, lumbar Morbid obesity due to excess calories 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 Scoliosis Sleep apnea Tendinopathy of left gluteal region Surgical History H/O bilateral inguinal hernia repair H/O nasal septoplasty History of ankle surgery Family History Mother Diabetes mellitus Father Back problem Social History marital status: number of children: 2 alcohol intake frequency: 0-2 drinks per day Exam Narrative Exam Narrative: General: Cooperative, well-developed, not in acute distress HEENT: Normocephalic, atraumatic, PERRLA, normal sclera, eyelids normal Neck: Active full range of motion, atraumatic Chest: Normal to inspection, negative crepitus, no overlying erythema ecchymosis Respiratory: Normal respiratory effort, not in acute respiratory distress, clear to auscultation bilaterally negative cough, wheeze, tachypnea, rhonchi, rales Cardiology: Regular rate rhythm negative gallop, murmur, rubs GI/: No tenderness to palpation, soft, non rigid, normal to inspection, exam deferred MSK: Full active range of motion in all 4 extremities, atraumatic, no tenderness to palpation of any bony prominences Skin: No rashes or lesions noted Neuro: Alert awake oriented x3, moves all 4 extremities spontaneously, cranial nerves intact, able to answer all questions appropriately follows commands appropriately Psych: Cooperative, negative suicidal or homicidal ideations Initial Vital Signs Initial Vital Signs: Vital Signs Temperature 98.1 F 09/18/24 00:24 Pulse Rate 71 09/18/24 00:24 Respiratory Rate 16 09/18/24 00:24 Blood Pressure 159/83 H 09/18/24 00:24 Pulse Oximetry 98 09/18/24 00:24 Oxygen Delivery Method Room Air 09/18/24 00:24 Course Orders Ordered: ED Orders 09/18/24 00:20 Complete Blood Count AUTO DIFF Stat Comprehensive Metabolic Panel Stat Lipase Stat 09/18/24 00:22 CT abdomen pelvis w con Stat Discontinued Medications Sodium Chloride (Normal Saline 0.9%) 1,000 mls @ 1,000 mls/hr IV BOLUS ONE Stop: 09/18/24 01:20 Last Admin: 09/18/24 00:45 Dose: 1,000 mls/hr Documented By: CHAO Morphine Sulfate (Morphine 4 Mg/Ml Inj) 4 mg IV NOW ONE Stop: 09/18/24 00:22 Last Admin: 09/18/24 00:45 Dose: 4 mg Documented By: CHAO Ondansetron HCl (Ondansetron 4 Mg/2 Ml Inj) 4 mg IV NOW ONE Stop: 09/18/24 00:22 Last Admin: 09/18/24 00:45 Dose: 4 mg Documented By: CHAO Vital Signs Vital signs: Vital Signs - 8 hr 09/18/24 00:24 Temperature 98.1 F Pulse Rate 71 Respiratory Rate 16 Blood Pressure 159/83 H Pulse Oximetry 98 Oxygen Delivery Method Room Air MDM - Back Pain/Injury Differential Diagnosis Differential diagnosis: Likely lumbar radiculopathy, renal colic, pyelonephritis and other (Pyelonephritis, urinary tract infection, muscle strain) Lab Data 09/18/24 00:20 09/18/24 00:20 Labs: Lab Results 09/18/24 Range/Units 00:20 WBC 7.4 (4.5-11.0) X10^3/uL RBC 4.59 (4.5-5.9) X10^6/uL Hgb 13.9 (13.5-17.5) g/dL Hct 39.8 L (41-53) % MCV 86.6 (80-100) fL MCH 30.3 (26-34) PG MCHC 34.9 (30-36) % RDW 13.0 (11.6-14.8) % Plt Count 196 (150-400) X10^3/uL Neut % (Auto) 51.5 (50-75) % Lymph % (Auto) 28.8 (25-40) % Morris % (Auto) 7.1 (3-14) % Eos % (Auto) 11.3 H (2-4) % Baso % (Auto) 1.3 (0-2) % Neut # (Auto) 3800 (8964-0859) /uL Lymph # (Auto) 2100 (1101-2960) /uL Morris # (Auto) 500 (0-900) /uL Eos # (Auto) 800 H (0-450) /uL Baso # (Auto) 100 (0-100) /uL Sodium 136 L (137-145) mmol/L Potassium 3.9 (3.4-5.1) mmol/L Chloride 103 (98-107) mmol/L Carbon Dioxide 28 (22-32) mmol/L BUN 16 (9-20) mg/dL Creatinine 0.79 (0.66-1.25) mg/dL Estimated GFR > 60 (>60) mL/min BUN/Creatinine Ratio 20.3 (6-22) Glucose 109 H (70-99) mg/dL Calcium 9.4 (8.4-10.2) mg/dL Total Bilirubin 0.3 (0.2-1.3) mg/dL AST 34 (17-59) IU/L ALT 30 (<50) IU/L Alkaline Phosphatase 78 (38-126) U/L Total Protein 6.9 (6.3-8.2) g/dL Albumin 4.5 (3.5-5.0) g/dL Globulin 2.4 (1.7-4.1) g/dL Albumin/Globulin Ratio 1.9 (1.0-2.8) Lipase 40 (23-300) U/L Urine Dip Bedside Urine Glucose Negative Bedside Urine Bilirubin - Negative Bedside Urine Ketone - Negative Urine Specific Graham 1.015 Bedside Urine Occult Blood - Negative Bedside Urine pH 6 Bedside Urine Protein - Negative Bedside Urine Urobilinogen - Negative Bedside Urine Nitrite - Negative Bedside Urine Leukocytes - Negative Esterase Imaging Data CT scan - abdomen/pelvis: Radiologist's Impression: [address] [address] [address] Scan Report Signed Patient: Amol Davis MR#: [id number] : 1955 Acct:[id number] Age/Sex: 69 / M Date of Service: 09/18/24 Loc: ED Accession Number: [id number] Procedure: CT abdomen pelvis w con Ordering Provider: Henrik Peet D.O. PROCEDURE: CT ABDOMEN PELVIS W CON INDICATIONS: b/l flank pain TECHNIQUE: After the administration of intravenous contrast, axial sections acquired from the lung bases to the pubic symphysis. Coronal and sagittal reformats were performed. For radiation dose reduction, the following was used: automated exposure control, adjustment of mA and/or kV according to patient size. COMPARISON: None. FINDINGS: Image quality: Diagnostic. Lower Chest: No significant findings. ABDOMEN: Liver: No solid mass. Gallbladder: No radiopaque gallstones or wall thickening. Biliary ducts: No biliary dilation. Pancreas: No ductal dilation. Spleen: Size is within normal limits. Adrenal Glands: No adrenal nodules. Kidneys and Ureters: No hydronephrosis. No solid mass. No complex renal cystic lesion which requires follow up. Stomach and Bowel: Normal colonic caliber, without significant wall thickening. Scattered colonic diverticula without acute inflammation. No evidence for small bowel obstruction or associated inflammatory changes. Multiple fluid-filled loops of small bowel with some fecalization in the distal small bowel. No wall thickening or significant inflammatory changes. Peritoneum: No abnormal intraperitoneal fluid. No free air. Ventral Wall: There is a fat-containing umbilical hernia without acute inflammation. Abdominal Nodes: No retroperitoneal or mesenteric adenopathy by size criteria. Vessels: Aorta and inferior vena cava are normal in size. PELVIS: Pelvic Organs: Mild prostatomegaly. Bladder: No bladder wall thickening, accounting for underdistention. Pelvic Nodes: No enlarged lymph nodes. Miscellaneous: No inguinal hernias are seen. Bones: No aggressive osseous abnormality. There are postsurgical changes of lumbar spinal fusion from L3 through L5. No acute compression fractures. IMPRESSION: CT abdomen and pelvis without acute abnormalities to explain patient's symptoms. Colonic diverticulosis without acute diverticulitis. Multiple fluid-filled loops of small bowel with mild fecalization of the distal small bowel. Findings may represent delayed transit secondary to an infectious or inflammatory process. No evidence for small bowel obstruction. Other chronic/non-acute findings as above. MDM Narrative Medical decision making narrative: 69-year-old male with a past medical history of chronic back pain, comes into the ED from home for evaluation of bilateral flank pain. He states this is not similar to his history of back pain he describes it as bilateral flank pressure, nothing making it better or worse. He states this is not similar to what he feels with his low back pain which is numbness tingling weakness in his lower extremities, states he has a history of multiple surgeries to his back states that this is not what he normally feels states it feels more like in his ?kidneys. Patient also stating that he is having some nausea with the symptoms. Patient had lab work imaging and urinalysis performed here in the emergency department. Patient without any abnormal findings on CT scan, creatinine normal, urinalysis not consistent with acute urinary tract infection, no leukocytosis, most likely symptomology secondary to muscle strain/spasm, patient will be sent home with short course of Valium for symptom management, he was instructed to follow up with the primary care in outpatient setting strict return precautions were given verbalized understanding of this and agrees to being discharged home with outpatient follow up Discharge Plan Departure Patient Disposition: Home Clinical Impression: Lumbar strain Activity Restrictions/Additional Instructions: Please follow up with the primary care doctor Please read the discharge instructions sheet carefully and bring all papers to all doctor follow-up visits, as it may contain information that your doctor may want to see. Disease processes change and evolve, if your symptoms worsen or if you develop any new symptoms that are concerning to you please return for evaluation. Your evaluation today does not show any evidence of any life-threatening/serious illnesses requiring admission to the hospital or surgery. Please follow-up with your doctor for re-evaluation in approximately 1 day. Seek immediate medical attention for any worrisome symptoms. *If you do not have a primary care provider please contact the [facility] Resource line at [phone]. They will ask some questions about your medical history and help get you set up with a doctor in the community. Prescriptions: New diazepam [Valium] 5 mg tablet 5 mg PO BEDTIME PRN (Reason: muscle spasm) 5 Days Qty: 5 0RF No Action cyclobenzaprine 10 MG tablet 10 mg PO PRN Qty: 0 omeprazole 40 mg capsule,delayed release(DR/EC) 40 mg PO DAILY oxycodone 10 mg tablet 10 mg PO 4XD PRN doxepin 5 % cream 1 applic topical ONCE clobetasol 0.05 % cream topical metoprolol succinate 25 mg tablet extended release 24 hr 25 mg PO DAILY aspirin 81 mg tablet,delayed release (DR/EC) 81 mg PO DAILY Patient Comments: TAKE 1 TABLET BY MOUTH EVERY DAY FOR HEART diclofenac sodium 75 mg tablet,delayed release (DR/EC) 75 mg PO BID Qty: 60 2RF duloxetine [Cymbalta] 30 mg capsule,delayed release(DR/EC) 30 mg PO QPM MDD 2 Qty: 60 3RF morphine 15 mg tablet extended release 15 mg PO Q12H PRN Patient Comments: [NO ORIGINAL SIG] trazodone 100 mg tablet 100 mg PO BEDTIME PRN (Reason: insomnia) Qty: 60 2RF Referrals: Rossy Wilson PA-C [Primary Care Provider, Medical] Stand Alone Forms: Patient Portal/API
--- NOTE | 2024-09-18 00:22 | DI.CT.S_ITS ---
PROCEDURE: CT ABDOMEN PELVIS W CON INDICATIONS: b/l flank pain TECHNIQUE: After the administration of intravenous contrast, axial sections acquired from the lung bases to the pubic symphysis. Coronal and sagittal reformats were performed. For radiation dose reduction, the following was used: automated exposure control, adjustment of mA and/or kV according to patient size. COMPARISON: None. FINDINGS: Image quality: Diagnostic. Lower Chest: No significant findings. ABDOMEN: Liver: No solid mass. Gallbladder: No radiopaque gallstones or wall thickening. Biliary ducts: No biliary dilation. Pancreas: No ductal dilation. Spleen: Size is within normal limits. Adrenal Glands: No adrenal nodules. Kidneys and Ureters: No hydronephrosis. No solid mass. No complex renal cystic lesion which requires follow up. Stomach and Bowel: Normal colonic caliber, without significant wall thickening. Scattered colonic diverticula without acute inflammation. No evidence for small bowel obstruction or associated inflammatory changes. Multiple fluid-filled loops of small bowel with some fecalization in the distal small bowel. No wall thickening or significant inflammatory changes. Peritoneum: No abnormal intraperitoneal fluid. No free air. Ventral Wall: There is a fat-containing umbilical hernia without acute inflammation. Abdominal Nodes: No retroperitoneal or mesenteric adenopathy by size criteria. Vessels: Aorta and inferior vena cava are normal in size. PELVIS: Pelvic Organs: Mild prostatomegaly. Bladder: No bladder wall thickening, accounting for underdistention. Pelvic Nodes: No enlarged lymph nodes. Miscellaneous: No inguinal hernias are seen. Bones: No aggressive osseous abnormality. There are postsurgical changes of lumbar spinal fusion from L3 through L5. No acute compression fractures. IMPRESSION: CT abdomen and pelvis without acute abnormalities to explain patient's symptoms. Colonic diverticulosis without acute diverticulitis. Multiple fluid-filled loops of small bowel with mild fecalization of the distal small bowel. Findings may represent delayed transit secondary to an infectious or inflammatory process. No evidence for small bowel obstruction. Other chronic/non-acute findings as above. Dictated by: Solomon Scanlon M.D. on 09/18/2024 at 2:12 Approved by: Solomon Scanlon M.D. on 09/18/2024 at 2:18
[2024-09-18 00:24] VITALS: BP 159/83; PULSE 71; RESP 16; TEMP 36.7; O2SAT 98; BMI 33.6
[2024-09-18 00:43] LABS: Add Manual Diff / Slide Review NO; Basophils Absolute Auto 100 /uL (0-100); Basophils Percent Auto 1.3 % (0-2); Eosinophils Absolute Auto 800 /uL (0-450); Eosinophils Percent Auto 11.3 % (2-4); Hematocrit 39.8 % (41-53); Hemoglobin 13.9 g/dL (13.5-17.5); Lymphocytes Absolute Auto 2100 /uL (1100-4500); Lymphocytes Percent Auto 28.8 % (25-40); Mean Corpuscular HGB Conc 34.9 % (30-36); Mean Corpuscular Hemoglobin 30.3 PG (26-34); Mean Corpuscular Volume 86.6 fL (80-100); Monocytes Absolute Auto 500 /uL (0-900); Monocytes Percent Auto 7.1 % (3-14); Neutrophils Absolute Auto 3800 /uL (1500-7000); Neutrophils Percent Auto 51.5 % (50-75); Platelet Count 196 X10^3/uL (150-400); Red Blood Cell Count 4.59 X10^6/uL (4.5-5.9); White Blood Cell Count 7.4 X10^3/uL (4.5-11.0)
[2024-09-18] MEDS: ONDANSETRON 4 MG/2 ML INJ IV (00:45)
[2024-09-18] MEDS: MORPHINE 4 MG/ML INJ IV (00:45)
[2024-09-18] MEDS: SODIUM CHLORIDE 0.9% 1,000 ML 1000 ML IV (00:45)
[2024-09-18 00:53] LABS: Alanine Aminotransferase 30 IU/L (<50); Albumin 4.5 g/dL (3.5-5.0); Albumin Globulin Ratio 1.9 (1.0-2.8); Alkaline Phosphatase 78 U/L (38-126); Aspartate Aminotransferase 34 IU/L (17-59); BUN Creatinine Ratio 20.3 (6-22); Bilirubin Total 0.3 mg/dL (0.2-1.3); Blood Urea Nitrogen 16 mg/dL (9-20); Calcium 9.4 mg/dL (8.4-10.2); Carbon Dioxide 28 mmol/L (22-32); Chloride 103 mmol/L (98-107); Estimated Glomerular Filt Rate > 60 mL/min (>60); Globulin 2.4 g/dL (1.7-4.1); Glucose 109 mg/dL (70-99); HEMOLYSIS < 15 (0-50); Lipase 40 U/L (23-300); Potassium 3.9 mmol/L (3.4-5.1); Sodium 136 mmol/L (137-145); Total Protein 6.9 g/dL (6.3-8.2)
[2024-09-18 01:00] VITALS: BP 146/92; PULSE 70; RESP 18; O2SAT 96
[2024-09-18 01:30] VITALS: BP 128/76; PULSE 62; RESP 18; O2SAT 94
[2024-09-18 02:30] VITALS: BP 130/77; PULSE 62; RESP 18; O2SAT 96
== END 2024-09-18 02:53 | disposition home or self-care (01) ==
PROVIDERS: Emergency Provider Student in an Organized Health Care Education/Training Program; PCP Physician Assistant Medical
DX: S39.012A Strain of muscle, fascia and tendon of lower back, initial encounter (principal)
CPT/HCPCS: 36415; 74177; 80053; 81003; 83690; 85025; 96361; 96374; 96375; 99284; J2270; J2405; Q9967

== ENCOUNTER → 2025-02-10 19:41 | Outpatient (CLI) | payer MEDICARE, OTHER, SELFPAY ==
--- NOTE | 2025-02-10 19:44 | DI.MRI.S_ITS ---
PROCEDURE: MR THORACIC SPINE WO CON INDICATIONS: preoperative clearance TECHNIQUE: Noncontrast sagittal T1 spine echo and T2 fast spin echo, sagittal STIR, and T2 fast spin echo through the thoracic spine. COMPARISON: None. FINDINGS: Image quality: Excellent. Post-surgical changes: Changes of C5-6 and C6-7 ACDF. Associated susceptibility artifact from the fixation hardware. Alignment and Curvature: There is normal bony alignment. Bone Marrow: Marrow is of normal overall signal. The cord terminates at L1. No acute vertebral body compression fractures. Spinal Cord: Visualized spinal cord is normal in size and signal. Paraspinous Soft Tissues: No paravertebral masses. A dermal based 0.9 cm lesion in the left paramidline posterior back at the level of T4 may represent epidermal inclusion cyst. Miscellaneous: Mildly degenerated disc at T1-2, T7-8, T8-9, T9-10, T10-11, and T11-12 with slight, symmetric, bulging disc which indents anterior thecal sac but does not result in significant spinal canal stenosis. Mild bilateral neural foraminal stenosis at T1-2 and T4-5 due to facet arthrosis. IMPRESSION: 1. Mild bilateral neural foraminal stenosis at T1-2 and T4-5 due to facet arthrosis. 2. Mildly degenerated discs at multiple thoracic spinal levels do not result in significant spinal canal stenosis. 3. A dermal based 0.9 cm lesion in the left paramidline posterior back at the level of T4 may represent epidermal inclusion cyst. Correlate with physical exam findings and if indicated, soft tissue dedicated ultrasound could be performed. Dictated by: Tyron Fuentes M.D. on 02/11/2025 at 9:08 Approved by: Tyron Fuentes M.D. on 02/11/2025 at 9:14
== END ==
LOC: MRI 19:42
PROVIDERS: PCP Physician Assistant Medical; Referring Provider Nurse Practitioner; Visit Provider Nurse Practitioner
DX: Z01.818 Encounter for other preprocedural examination (principal); M51.34 Other intervertebral disc degeneration, thoracic region; M47.814 Spondylosis without myelopathy or radiculopathy, thoracic region; M48.04 Spinal stenosis, thoracic region; D17.1 Benign lipomatous neoplasm of skin and subcutaneous tissue of trunk; R26.9 Unspecified abnormalities of gait and mobility; R29.898 Other symptoms and signs involving the musculoskeletal system; M43.17 Spondylolisthesis, lumbosacral region; Z98.1 Arthrodesis status
CPT/HCPCS: 72146

== ENCOUNTER 2025-03-11 02:38 | Emergency (ER) | payer MEDICARE, OTHER, SELFPAY ==
[2025-03-11 02:45] VITALS: BP 121/81; PULSE 78; RESP 18; TEMP 36.8; O2SAT 96; BMI 31.4
--- NOTE | 2025-03-11 02:57 | DI.CT.S_ITS ---
PROCEDURE: CT LUMBAR SPINE WO CON INDICATIONS: back pain after surgery TECHNIQUE: Noncontrast 3 mm thick sections acquired from the T12 level to the sacrum. Sagittal and coronal reformats were constructed. For radiation dose reduction, the following was used: automated exposure control. COMPARISON: [facility], CT, CT LUMBAR SPINE WITHOUT CONTRAST, 03/09/2024, 7:46. FINDINGS: Image quality: Excellent. Bones: There is no visualized fracture or dislocation. Trace retrolisthesis is present of L2 on L3, trace anterolisthesis of L4 on L5. Posterior fusion from L1 through L5 with intervertebral spacer/prosthetic discs at L1-2, L2-3, L3-4, L4-5. Hardware is intact without hardware fracture or periprosthetic lucency to suggest loosening. Alignment is stable. Soft tissues: Adjacent to the right psoas muscle, there is a focus of decreased attenuation not fully included within the field of view measuring 3.2 x 5.9 cm. This is new since prior exam in 2023. Hounsfield units measure 16. Visualized aorta is normal in caliber. IMPRESSION: Extensive surgical hardware without evidence of hardware failure or loosening. Fluid collection adjacent to the right psoas muscle. Finding is indeterminate. This could represent a seroma. The above findings are concordant with preliminary report. Dictated by: Meggan More M.D. on 03/11/2025 at 9:11 Approved by: Meggan More M.D. on 03/11/2025 at 9:18
--- NOTE | 2025-03-11 04:09 | ED.EXTPRO ---
HPI - Extremity Problem General Chief complaint: Extremity Problem,Nontraumatic Stated complaint: L hip/leg pain Time Seen by Provider: 03/11/25 02:56 Source: patient Mode of arrival: Ambulatory History of Present Illness HPI Narrative: 69-year-old male status post fusion lumbar spine L1-L5, postoperatively having left leg pain, shooting charge like sensation, told that this happens after surgery and likely would go away. He has had subsequent fall, was seen in neurosurgery clinic postoperatively with x-rays, no acute fracture changes by report. Had a new fall recent, increased left leg pain. Taking oxycodone postoperative pain control, and Flexeril for bed. No incontinence of urine or stool. No fevers or chills. No weeping from the wound, drain was in place had been pulled in clinic in follow up. Related Data Home Medications ?Medication ?Instructions ?Recorded ?Confirmed cyclobenzaprine 10 mg tablet 10 mg PO PRN ##0 05/27/12 07/01/24 metoprolol succinate 25 mg 25 mg PO DAILY 08/17/19 07/01/24 tablet,extended release 24 hr aspirin 81 mg tablet,delayed 81 mg PO DAILY 08/25/21 07/01/24 release omeprazole 40 mg capsule,delayed 40 mg PO DAILY 01/09/23 07/01/24 release doxepin 5 % topical cream 1 applic topical ONCE 03/18/24 07/01/24 oxycodone 10 mg tablet 10 mg PO 4XD PRN 03/18/24 07/01/24 clobetasol 0.05 % topical cream topical 05/27/24 07/01/24 morphine 15 mg tablet,extended 15 mg PO Q12H PRN 07/01/24 07/01/24 release Previous Rx's ?Medication ?Instructions ?Recorded diclofenac sodium 75 mg 75 mg PO BID #60 tabs 08/25/21 tablet,delayed release trazodone 100 mg tablet 100 mg PO BEDTIME PRN insomnia #60 07/01/24 tabs duloxetine 30 mg capsule,delayed 60 mg (2 x 30 mg) PO BEDTIME #60 10/30/24 release caps duloxetine 30 mg capsule,delayed 30 mg PO QPM #90 caps 01/25/25 release prednisone 20 mg tablet 40 mg (2 x 20 mg) PO DAILY 5 days 03/11/25 #10 tabs Allergies Allergy/AdvReac Type Severity Reaction Status Date / Time hydroxyzine Allergy Mild Verified 09/18/24 00:24 piroxicam AdvReac Mild Blister Verified 09/18/24 00:24 topiramate AdvReac Mild Blurry Verified 09/18/24 00:24 Vision Patient History Medical History Cervical radiculopathy Degenerative tear of acetabular labrum of right hip Facet arthropathy, lumbar Femoroacetabular impingement of both hips GERD (gastroesophageal reflux disease) Greater trochanteric bursitis of left hip Herniated nucleus pulposus, lumbar Morbid obesity due to excess calories 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 HEAD: Atraumatic. Normocephalic. EYES: Pupils equal round and reactive. Extraocular motions intact. No scleral icterus. No injection or drainage. ENT: Nose without bleeding, purulent drainage. Throat without erythema, tonsillar hypertrophy or exudate. Airway patent. NECK: Trachea midline. Non tender CARDIOVASCULAR: Regular rate and rhythm without murmurs, gallops, or rubs. RESPIRATORY: Clear to auscultation. Breath sounds equal bilaterally. No wheezes, rales, or rhonchi. GASTROINTESTINAL: Abdomen soft, non-tender, nondistended. EXTREMITIES: No edema or joint tenderness. BACK: Examined in room 5, no bed/gurney, could not do straight leg red cells testing although he has been doing this at physical therapy reportedly with full range of motion doing well, not supposed to lift, did not attempt squatting, using walker as baseline. Able to extend his left leg and flex his left leg in sitting position. No obvious swelling or redness to skin changes left lower extremity upper or lower. NEURO: AOx3. Motor functions grossly nonfocal. SKIN: No rash or erythema of visible areas Initial Vital Signs Initial Vital Signs: Vital Signs Temperature 98.3 F 03/11/25 02:45 Pulse Rate 78 03/11/25 02:45 Respiratory Rate 18 03/11/25 02:45 Blood Pressure 121/81 03/11/25 02:45 Pulse Oximetry 96 03/11/25 02:45 Oxygen Delivery Method Room Air 03/11/25 02:45 Course Orders Ordered: Discontinued Medications Hydromorphone HCl (Hydromorphone 1 Mg/Ml Syringe) 1 mg IM NOW ONE Stop: 03/11/25 04:32 Last Admin: 03/11/25 04:59 Dose: 1 mg Documented By: KIARA Prednisone (Prednisone 20 Mg Tablet) 60 mg PO NOW ONE Stop: 03/11/25 04:32 Last Admin: 03/11/25 04:58 Dose: 60 mg Documented By: KIARA Vital Signs Vital signs: Vital Signs - 8 hr 03/11/25 02:45 Temperature 98.3 F Pulse Rate 78 Respiratory Rate 18 Blood Pressure 121/81 Pulse Oximetry 96 Oxygen Delivery Method Room Air MDM - Extremity (Nontraumatic) MDM Narrative Medical decision making narrative: 69-year-old male with recent lumbar surgical fusion spine [facility], now having pain down his left leg, electrical shooting like sensation. Takes oxycodone for postoperative pain. CT lumbar spine noncontrast. Impression: ?no acute findings in the lumbar spine. Extensive post surgical changes with hardware as noted. Incidental finding of 7 x 3 cm low attenuation fluid collection in the abdomen adjacent to the right psoas muscle, possibly a seroma. No priors for comparison.? See tele radiology report. Taking Oxycodone and Flexeril, will add prednisone, first oral dose now, Rx sent to his requested pharmacy. Advised to contact his [facility] neurosurgeon later today during open clinic hours. DC home, return precautions discussed. Discharge Plan Departure Patient Disposition: Home Clinical Impression: Left leg pain, History of lumbosacral spine surgery, Seroma Activity Restrictions/Additional Instructions: Status post multilevel lumbar fusion surgery [facility], postoperative left leg pain, told that this would gradually go away, postoperative fall with clinic evaluation x-rays reportedly negative, another recent fall, increasing left leg pain. Surgical site recent withdrawal of the drainage catheter, surgical site looks good today, no fever on triage. No reported symptoms of incontinence of urine or stool. Taking postoperative oxycodone pain medication, and cyclobenzaprine/Flexeril muscle relaxant. CT scan lumbar spine today showed no acute injury patterns, did show postoperative extensive changes, and incidental 7 x 3 cm right psoas muscle area noted (on opposite side of current pain). Seroma postoperative fluid collection should usually be resorbed by the body hopefully without any surgical interventions. Trial of steroids, given oral dose of prednisone here in the emergency department, with prescription for further prednisone to take next few days, electronically sent to your pharmacy. Continue postoperative pain medications. Consider contacting your neurosurgeon to see if further close follow up needed in their clinic given your persistence of symptoms after surgery. Recheck with your regular doctor Saturday afternoon. Return to this/nearest emergency department for any change worsening symptoms or any concerns prior. Prescriptions: New prednisone 20 mg tablet 40 mg PO DAILY 5 Days Qty: 10 0RF No Action cyclobenzaprine 10 MG tablet 10 mg PO PRN Qty: 0 duloxetine 30 mg capsule,delayed release(DR/EC) 60 mg PO BEDTIME Qty: 60 1RF duloxetine 30 mg capsule,delayed release(DR/EC) 30 mg PO QPM Qty: 90 1RF omeprazole 40 mg capsule,delayed release(DR/EC) 40 mg PO DAILY oxycodone 10 mg tablet 10 mg PO 4XD PRN doxepin 5 % cream 1 applic topical ONCE clobetasol 0.05 % cream topical metoprolol succinate 25 mg tablet extended release 24 hr 25 mg PO DAILY aspirin 81 mg tablet,delayed release (DR/EC) 81 mg PO DAILY Patient Comments: TAKE 1 TABLET BY MOUTH EVERY DAY FOR HEART diclofenac sodium 75 mg tablet,delayed release (DR/EC) 75 mg PO BID Qty: 60 2RF morphine 15 mg tablet extended release 15 mg PO Q12H PRN Patient Comments: [NO ORIGINAL SIG] trazodone 100 mg tablet 100 mg PO BEDTIME PRN (Reason: insomnia) Qty: 60 2RF Referrals: Rossy Wilson PA-C [Primary Care Provider, Family Practice] Stand Alone Forms: Patient Portal/API
[2025-03-11 05:23] VITALS: BP 128/78; PULSE 70; RESP 20; TEMP 36.7; O2SAT 96
== END 2025-03-11 05:26 | disposition home or self-care (01) ==
PROVIDERS: Emergency Provider Emergency Medicine; PCP Physician Assistant Medical
DX: M25.552 Pain in left hip (principal); M79.662 Pain in left lower leg
CPT/HCPCS: 72131; 96372; 99283; J1171